=== PATIENT | female | born 1930 | race Caucasian/White ===

== ENCOUNTER 2016-06-24 19:40 | Inpatient (IN) | payer MEDICARE ==
[~2016-06-24] VITALS: Ht 157.5 cm; Wt 52.4 kg
[2016-06-24 20:25] LABS: BASOPHILS 0.2 % (0.0-2.0); EOSINOPHILS 0.7 % (0-7); HEMATOCRIT 40.5 % (36.0-48.0); IMMATURE GRANULOCYTES 0.1 % (0-5); LYMPHOCYTES 26.4 % (15-50); MCH 30.2 pg (26.0-34.0); MCHC 34.6 g/dL (31.0-37.0); MCV 87.3 fL (80.0-100.0); MEAN PLATELET VOLUME 11.6 fL (7.4-10.4); MONOCYTES 7.6 % (2-11); PLATELET COUNT 196 10x3/uL (130-400); RBC 4.64 10x6/uL (4.00-5.40); RDW 13.1 % (11.5-14.5); WBC 8.6 10x3/uL (4.8-10.8)
[2016-06-24 20:39] LABS: ALBUMIN 3.9 g/dL (3.4-5.0); ANION GAP 12.9 mmol/L (8-16); BILIRUBIN - TOTAL 0.55 mg/dL (0.2-1.3); CALCIUM 11.5 mg/dL (8.5-10.1); CARBON DIOXIDE 30.1 mmol/L (21.0-32.0); PROTEIN - SERUM 6.8 g/dL (6.4-8.2)
[2016-06-24 21:20] LABS: UDS - AMPHET NEGATIVE QUAL (NEGATIVE); UDS - BARB NEGATIVE QUAL (NEGATIVE); UDS - BENZO POSITIVE QUAL (NEGATIVE); UDS - COCAINE NEGATIVE QUAL (NEGATIVE); UDS - METH NEGATIVE QUAL (NEGATIVE); UDS - OPIATE POSITIVE QUAL (NEGATIVE); UDS - PCP NEGATIVE QUAL (NEGATIVE); UDS - THC NEGATIVE QUAL (NEGATIVE)
[2016-06-24 21:24] LABS: APPEARANCE HAZY (CLEAR); BILIRUBIN NEGATIVE (NEGATIVE); COLOR YELLOW (YELLOW); GLUCOSE NEGATIVE (NEGATIVE); KETONE NEGATIVE (NEGATIVE); LEUKOCYTE ESTERASE 1+ (NEGATIVE); NITRITE NEGATIVE (NEGATIVE); PROTEIN NEGATIVE (NEGATIVE); UROBILINOGEN NORMAL (NORMAL)
[2016-06-24 21:25] LABS: WHITE CELLS - URINE >50 /hpf (0-5)
[2016-06-24 21:27] LABS: BACTERIA MODERATE /hpf (NONE SEEN); RED CELLS - URINE 0-5 /hpf (0-5)
[2016-06-25 05:33] VITALS: BP 118/39; BMI 18.0
[2016-06-25 06:29] VITALS: BP 118/39
--- NOTE | 2016-06-25 07:24 | NUR ---
PT SITTING UP IN BED SLEEPING NO S/S DISTRESS NOTED WILL CONT TO MONITOR
--- NOTE | 2016-06-25 07:44 | NUR ---
CALLED PHARM TO FINISH PT MED REC, PT ISNT SURE OF HOME MEDS. PHARM NOT OPEN YET.
[2016-06-25] MEDS ORDERED: HYDROCODON-ACE1 EAC7 PO (08:26)
[2016-06-25] MEDS ORDERED: XANAX0.25 MG PO (08:27)
[2016-06-25] MEDS ORDERED: MODURETIC 5/501 TAB PO (08:28)
[2016-06-25] MEDS ORDERED: SYNTHROID50 MCG PO (08:28)
[2016-06-25] MEDS ORDERED: METOPROLOL-HCT1 EACH PO (08:30)
[2016-06-25 08:32] VITALS: BP 152/58
--- NOTE | 2016-06-25 11:17 | NUR ---
PT SITTING UP IN BED DENIES NEEDS AT THIS TIME WILL CONT TO MONITOR.
[2016-06-25 11:54] VITALS: Ht 157.5 cm; Wt 52.4 kg
[2016-06-25 12:43] VITALS: BP 153/82
--- NOTE | 2016-06-25 13:03 | NUR ---
FAXED CONSULT TO [phone]
--- NOTE | 2016-06-25 16:10 | NUR ---
PT ON TELE RUNNING SR 66 BPM
[2016-06-25 16:18] VITALS: BP 148/74
--- NOTE | 2016-06-25 16:33 | NUR ---
PT IS VERY UPSET THAT HER GRANDDAUGHTER IS LISTED CONTACT NUMBER. WANTS TAKEN OFF AND HER SON AMINTA CARO, KRISTI COLUNGA NEPHEW, AND CAREGIVER SANTA IRENE PUT ON HER CONTACT LIST. CALLED ER ADMISSIONS AND THEY ARE TAKING GRANDDAUGHTER OFF CHART AND PUTTING THESE CONTACTS ON. PER PT REQUEST PLACING SIGN ON DOOR THAT SAYS TO SEE NURSING STATION BEFORE ENTERING ROOM.
--- NOTE | 2016-06-25 18:32 | NUR ---
PT SITTING UP ON SIDE OF BED TALKING TO VISITORS DENIES NEEDS WILL CONT TO MONITOR.
--- NOTE | 2016-06-25 19:03 | NUR ---
SITTING UP IN BED, AWAKE AND ALERT, CONFUSED TO PLACE AND TIME, IV PATENT TO RIGHT BREAST, DENIES NEEDS, NO DISTRESS NOTED
[2016-06-25 20:15] VITALS: BP 164/65
[2016-06-26 00:34] VITALS: BP 152/55
--- NOTE | 2016-06-26 00:55 | NUR ---
CLAIMS SUPPORT SPECIALIST AT BEDSIDE FOR VS, NEEDS ADDRESSED. CALL LIGHT IN REACH. WILL CONT TO MONITOR.
[2016-06-26 04:26] VITALS: BP 150/58
[2016-06-26 05:16] LABS: BASOPHILS 0.2 % (0.0-2.0); HEMOGLOBIN 14.1 g/dL (12-16); IMMATURE GRANULOCYTES 0.1 % (0-5); LYMPHOCYTES 24.4 % (15-50); MCH 30.5 pg (26.0-34.0); MCHC 34.4 g/dL (31.0-37.0); MCV 88.7 fL (80.0-100.0); MEAN PLATELET VOLUME 12.6 fL (7.4-10.4); MONOCYTES 6.9 % (2-11); NEUTROPHILS 67.4 % (40-80); PLATELET COUNT 165 10x3/uL (130-400); RBC 4.62 10x6/uL (4.00-5.40); RDW 13.2 % (11.5-14.5); WBC 8.1 10x3/uL (4.8-10.8)
[2016-06-26 05:30] LABS: CALCIUM 10.4 mg/dL (8.5-10.1); CARBON DIOXIDE 27.4 mmol/L (21.0-32.0); CHLORIDE - SERUM 99 mmol/L (98-107); GLUCOSE 129 mg/dL (74-106); PHOSPHOROUS 2.6 mg/dL (2.5-4.9); SODIUM 135 mmol/L (136-145)
[2016-06-26 05:37] LABS: CALC OSMOLALITY 272 mosm/kg (275-300); CREATININE - SERUM 0.7 mg/dL (0.6-1.3); UREA NITROGEN 15 mg/dL (7-18); eGFR NON AFRICAN AMERICAN 84 mL/min (90-120)
[2016-06-26 05:38] LABS: POTASSIUM - SERUM 3.5 mmol/L (3.5-5.1)
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
[2016-06-26 08:33] VITALS: BP 150/63
--- NOTE | 2016-06-26 11:09 | NUR ---
PT UP AND WALKING IN THE HALLS TODAY.
[2016-06-26 12:26] VITALS: BP 150/72
--- NOTE | 2016-06-26 13:01 | NUR ---
PT KEEPS WANDERING AROUND THE FLOOR LOOKING FOR A "SILVER CANDLESTICK" WILL NOT TELL US WHAT FOR. KEEPS TALKING ABOUT "BRANDEE" AND THAT HE IS "OUTSIDE HER WINDOW TELLING HER HE IS "COMING FOR HER".
[2016-06-26 15:46] VITALS: BP 127/51
--- NOTE | 2016-06-26 17:54 | NUR ---
PT SITTING UP IN BED DENIES NEEDS HELPED PT TO THE BATHROOM TO VOID.
--- NOTE | 2016-06-26 19:36 | NUR ---
RECIEVED PTS P.O.A PAPERS FROM CARE GIVEN SANTA, COPIES MADE AND PLACED ON CHART, ORIGINAL COPY GIVEN BACK TO ROOM SERVICE FOOD SERVICE ATTENDANT.
[2016-06-26 20:00] VITALS: BP 107/44
--- NOTE | 2016-06-26 23:02 | NUR ---
COUNTER SALES REPRESENTATIVE AT BEDSIDE FOR VS. NEEDS ADDRESSED, CALL LIGHT IN REACH. WILL CONT TO MONITOR.
--- NOTE | 2016-06-27 00:51 | NUR ---
RESTING WITH EYES CLOSED, RESPERATIONS EVEN, NO S/S DISTRESS NOTED.
--- NOTE | 2016-06-27 02:27 | NUR ---
REPOSITIONED IN BED FOR COMFORT.
[2016-06-27 05:35] LABS: BASOPHILS 0.2 % (0.0-2.0); EOSINOPHILS 2.4 % (0-7); HEMATOCRIT 36.5 % (36.0-48.0); HEMOGLOBIN 12.3 g/dL (12-16); IMMATURE GRANULOCYTES 0.2 % (0-5); LYMPHOCYTES 32.8 % (15-50); MCH 29.9 pg (26.0-34.0); MCHC 33.7 g/dL (31.0-37.0); MCV 88.8 fL (80.0-100.0); MEAN PLATELET VOLUME 11.8 fL (7.4-10.4); MONOCYTES 8.2 % (2-11); NEUTROPHILS 56.2 % (40-80); PLATELET COUNT 143 10x3/uL (130-400); RBC 4.11 10x6/uL (4.00-5.40); RDW 13.3 % (11.5-14.5); WBC 6.6 10x3/uL (4.8-10.8)
[2016-06-27 06:03] LABS: CALC OSMOLALITY 271 mosm/kg (275-300); CALCIUM 10.1 mg/dL (8.5-10.1); CARBON DIOXIDE 27.7 mmol/L (21.0-32.0); CHLORIDE - SERUM 102 mmol/L (98-107); CREATININE - SERUM 0.6 mg/dL (0.6-1.3); GLUCOSE 93 mg/dL (74-106); PHOSPHOROUS 2.6 mg/dL (2.5-4.9); POTASSIUM - SERUM 3.6 mmol/L (3.5-5.1); SODIUM 136 mmol/L (136-145); UREA NITROGEN 13 mg/dL (7-18); eGFR NON AFRICAN AMERICAN > 90 mL/min (90-120)
[2016-06-27 06:07] LABS: MAGNESIUM - SERUM 1.3 mg/dL (1.8-2.4)
[2016-06-27 08:25] VITALS: BP 137/60
--- NOTE | 2016-06-27 09:56 | NUR ---
Patient Name: ADILENE CARO Admission Status: ER Accout number: [id number] Admission Date: 06-24-2016 : 1930 Admission Diagnosis: CVA, A Fib Attending: AMY Current LOS: 1 Anticipated DC Date: 06-26-2016 Planned Disposition: Home Primary Insurance: WELLCARE MEDICARE ADV LATE ENTRY FROM 06-25-16, 1846 HOURS Discharge Planning Comments: Cm met with patient to complete initial discharge planning assessment. Patient gave consent to complete assessment. Patient reports she lives at home alone with no steps to enter the home. She mostly independent except for driving. Her sister does all the driving as the patient has macular degeneration. She does not use DME nor community resources. Patient plans to return to home alone and does not feel she will have any dc needs. CM will continue to follow and assist with dc plan/needs. Wrapper Caser: Hermelinda Pierce RN, [facility] [phone]
--- NOTE | 2016-06-27 11:14 | NUR ---
RESUMED CARE OF PT AT THIS TIME REPORT RECIVED FROM DANIELLE NDIAYE
[2016-06-27 11:37] VITALS: BP 114/65
--- NOTE | 2016-06-27 12:13 | NUR ---
PT LAYING IN BED NO DISTRESS OBSERVED CALL LIGHT INR EACH SRX2 BED LOW AND LOCKED WILL MONITOR
[2016-06-27 15:59] VITALS: BP 113/47
--- NOTE | 2016-06-27 17:05 | NUR ---
Patient Name: ADILENE CARO Encounter No: [id number] : 1930 Primary Insurance: WELLC[employer] MEDICARE ADV Anticipated DC Date: 06-28-2016 Planned Disposition: LONG TERM FACILITY External Planned Provider: [facility], MEDICARE REHAB BED DCP follow-up note: CM RECEIVED ORDER REPORTING PT'S FAMILY WANTING PLACEMENT. CM MET WITH PT IN ROOM, PT ORIENTED TO SELF ONLY. CM REVIEWED CHART, LOCATED POWER OF GEOSPATIAL IMAGERY INTELLIGENCE ANALYST DOCUMENT AND NOTICE FROM AMINTA CARO THAT HE IS OUT OF THE COUNTRY AND WOULD LIKE SECONDARY POA, KRISTI JEPURVI, , TO ACT DURING HIS ABSENCE AND IT WAS OK TO SHARE INFORMATION WITH [facility] RN AT [phone]. CM CALLED KRISTI COLUNGA, . KRISTI REPORTS PT'S SON AND DAUGHTER IN LAW ARE IN [facility] AND PT'S GRANDDAUGHTER IS NOT HOME ALL THE TIME TO TAKE CARE OF PT. THEY ARE WANTING PT PLACED IN REHAB UNTIL PT IS ABLE TO GO HOME OR UNTIL OTHER ARRANGEMENTS CAN BE MADE. RUSSEL REVIEWED PLACEMENT OPTIONS FOR LONG TERM REHAB. KRISTI REPORTED PT WAS AT [facility] LAST YEAR AND DID NOT HAVE A GOOD EXPERIENCE. THEY WOULD LIKE REFERRAL SENT TO [facility]. RUSSEL COMPILED REFERRAL AND FAXED TO LINETTE, CLINICAL LIAISON FOR [facility], . CM TO COMPLETE NIGEL SCREENING, OBTAIN FAMILY SIGNATURES AND FAX TO [employer] AT [phone]. CM WAITING ADMISSION DETERMINATION FROM [facility]. Lloyd Smiley, CASE MANAGEMENT
--- NOTE | 2016-06-27 19:33 | NUR ---
RECEIVED IN BEDROOM. STTING IN BED WITH UMBRELLA TIPPER MACHINE AT BEDSIDE. VERY CONFUSED. ALERT AND ORIENTED TO SELF ONLY. CONTACT ISOLATION FOR KLEBSIELLA IN URINE. REINFORCE FALLS SAFETY. CALL LIGHT IN REACH
[2016-06-27 20:00] VITALS: BP 130/58
--- NOTE | 2016-06-27 22:45 | NUR ---
RESTING IN BED WITH EYES CLOSED. NO SIGNS OF DISTRESS. CALL LIGHT IN REACH. BED ALARM ON
[2016-06-28] VITALS: BP 119/68
--- NOTE | 2016-06-28 02:51 | NUR ---
VERY CONFUSED. DELUSIONAL. CALL [employer] STATING SHE HAD A BOMB IN HER ROOM. HALDOL 1 MG PO GIVEN.
[2016-06-28 04:00] VITALS: BP 110/66
[2016-06-28 06:00] LABS: BASOPHILS 0.1 % (0.0-2.0); EOSINOPHILS 1.6 % (0-7); HEMATOCRIT 37.2 % (36.0-48.0); HEMOGLOBIN 12.7 g/dL (12-16); IMMATURE GRANULOCYTES 0.1 % (0-5); LYMPHOCYTES 19.4 % (15-50); MCHC 34.1 g/dL (31.0-37.0); MCV 87.9 fL (80.0-100.0); MEAN PLATELET VOLUME 11.8 fL (7.4-10.4); NEUTROPHILS 69.8 % (40-80); PLATELET COUNT 148 10x3/uL (130-400); RBC 4.23 10x6/uL (4.00-5.40); RDW 12.9 % (11.5-14.5); WBC 6.9 10x3/uL (4.8-10.8)
[2016-06-28 06:16] LABS: CALC OSMOLALITY 265 mosm/kg (275-300); CARBON DIOXIDE 27.8 mmol/L (21.0-32.0); CHLORIDE - SERUM 100 mmol/L (98-107); CREATININE - SERUM 0.7 mg/dL (0.6-1.3); GLUCOSE 89 mg/dL (74-106); POTASSIUM - SERUM 3.4 mmol/L (3.5-5.1); SODIUM 134 mmol/L (136-145); eGFR NON AFRICAN AMERICAN 84 mL/min (90-120)
[2016-06-28 06:17] LABS: UREA NITROGEN 9 mg/dL (7-18)
--- NOTE | 2016-06-28 07:00 | NUR ---
RECEIVED REPORT. AWAKE. ORIENTED X 4 BUT STATES SHE HAS A BOMB THAT SHE IS LAYING ON AND HAS BEEN LAYING ON FOR 2 DAYS. PATIENT STATES THAT SHE IS ANXIOUS AND REQUESTING ANTIANXIETY MEDICATION. CALL LIGHT WITHIN REACH. NO DISTRESS. RESP EVEN AND UNLABORED. BED ALARM PATENT.
[2016-06-28 08:08] VITALS: BP 181/57
--- NOTE | 2016-06-28 08:59 | NUR ---
PATIENT ACCEPTED 3/4 OF K+ ADMINISTERED IN APPLE JUICE AND THEN STATED MARISOL BRANDEE IS SINGING TO HER AND TELLING HER NOT TO TAKE IT BECAUSE THE BOMB IS IN THE POTASSIUM. TRIED TO REASSURE PATIENT THE POTASSIUM WAS SAFE AND PATIENT WOULD NOT BELIEVE THIS BLENDER. ASSISTED PATIENT TO RESTROOM, PATIENT HAS LOOSE STOOLS. 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 PATIENT TRIED TO SIT ON TRASH CAN AND HAVE BOWEL MOVEMENT. STATED SHE DID NOT KNOW SHE COULD NOT DO THAT. ASSISTED PATIENT WITH INCONTINENT CARE AND ASSISTED PATIENT BACK TO BED AT THIS TIME. NO DISTRESS. CALL LIGHT WITHIN REACH. BED ALARM PATENT.
--- NOTE | 2016-06-28 09:28 | NUR ---
STAFF AND STUDENT NURSE REPORTING TO THIS POT ROOM SUPERVISOR THAT PATIENT IS SEEING SOMEONE SITTING IN THE CORNER OF HER ROOM AND THAT SHE IS TRYING TO GET OOB AND LEAVE. PATIENT IS HAVING HALLUCINATIONS. PATIENT CONTINUES TO BE ORIENTED X 4 BUT HAVING AUDITORY AND VISUAL DISTURBANCES. REPORT TO AIX ADMINISTRATOR GIVEN AT THIS TIME.
--- NOTE | 2016-06-28 11:27 | NUR ---
EMAR IS NOT WORKING CORRECTLY AT THIS TIME. WHEN TRYING TO DOCUMENT MEDICATIONS ADMINISTERED, EMAR IS SHUTTING DOWN. IT DEPT IS AWARE AND TRYING TO CORRECT THE PROBLEM.
[2016-06-28 11:41] VITALS: BP 146/64
--- NOTE | 2016-06-28 11:44 | NUR ---
ATTEMPTING TO ADMINISTER [email or web address] TO PATIENT AT THIS TIME. EMAR IS NOT WORKING CORRECTLY. PATIENT IS HOLDING THE BLANKET IN EACH HAND, BLANKET HELD UP IN FRONT OF HER FACE. BLANKET MOVED IN ORDER TO ASSESS PATIENT. PATIENT RESP EVEN AND UNLABORED. PATIENT REFUSING TO SPEAK TO THIS OPEN HEARTH HELPER AT THIS TIME. PATIENT CONTINUES TO DISPLAY PSYCHOTIC BEHAVIOR AT THIS TIME. ENCOURAGED PATIENT TO PLEASE OPEN HER EYES AND PATIENT BARELY SQUINTED EYES OPEN AND QUICKLY CLOSED THEM AGAIN. WILL REQUEST ANTIDER PSYCH CONSULT TO BE ORDERED FROM ATTENDING PCP. UNABLE TO ADMINISTER FLORAJEN3 AT THIS TIME. NO DISTRESS. CALL LIGHT WITHIN REACH.
--- NOTE | 2016-06-28 13:56 | NUR ---
ASSISTED PATIENT BACK TO BED. PATIENT CONTINUES TO HAVE VISUAL HALLUCINATIONS. PATIENT STATES THAT THERE IS A TICKING BOMB IN THE CABINET BELOW AIR CONDITIONER. ATTEMPTED TO SHOW PATIENT THAT THERE IS NO DRAWER BELOW THE AIR CONDITIONER. PATIENT STATES THAT IT MUST BE IN THE BEDROOM WHILE POINTING TOWARD THE BATHROOM. UPON LEAVING THE ROOM, PATIENT STATES PLEASE DO NOT LEAVE, THIS FRANCHISE CONSULTANT TOLD PATIENT THAT I WOULD BE RIGHT OUTSIDE THE DOOR AND PATEINT STATED THAT SHE WAS NOT TALKING TO ME AND CONTINUED TO HAVE A CONVERSATION WITH SOMEONE SHE THOUGHT TO BE PRESENT IN ROOM. PATIENT ALSO TRYING TO CALL THE POLICE AGAIN TO REPORT A BOMB. TELEPHONE PLACED ON BEDSIDE STAND NEXT TO BED. NO DISTRESS. PATIENT SITTING IN BED CONSUMING SMALL BITES OF NOON MEAL AT THIS TIME.
--- NOTE | 2016-06-28 14:08 | NUR ---
PATIENT SITTING UP IN BED, BED IN LOW POSITION. BED ALARM PATENT. NO DISTRESS.
[2016-06-28 15:14] VITALS: BP 147/83
--- NOTE | 2016-06-28 17:12 | NUR ---
Patient Name: ADILENE CARO Encounter No: [id number] : 1930 Primary Insurance: WELLCARE MEDICARE ADV Anticipated DC Date: 06-29-2016 Planned Disposition: INTERMEDIATE FACILITY External Planned Provider: [facility], MEDICARE REHAB BED DCP follow-up note: KRISTI COLUNGA, NEPHGABE AND CRISPIN ARRIVED AND REVIEWED [facility] AND SIGNED THE SCREENING FORMS. CM FAXED COMPLETED NIGEL AND SUPPORTING DOCUMETNS TO [facility] FOR SCREENING AT . CM SPOKE TO LINETTE, CLINICAL LIAISON FOR [facility], WHO MET WITH PT AND WILL SPEAK TO STAFF AT [facility] AND NOTIFY CM OF ADMISSION DETERMINATION SOON POSSIBLE. CM FAXED MICROBIOLOGY REPORT FOR ISOLATION TO [facility] VIA LIN[facility]TE AT [phone]. CM WAITING NIGEL SCREENING RESULT AND ADMISSION DETERMINATION FROM [facility]. Lloyd Smiley, CASE MANAGEMENT
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
--- NOTE | 2016-06-28 18:20 | NUR ---
DON REPORTS TO THIS CALENDERING MACHINE OPERATOR WHILE IN ANOTHER PATIENT ROOM THAT PATIENT HAS RIPPED HER IV OUT. NO BLEEDING FROM SITE. PATIENT CONTINUES TO HAVE VISUAL AND AUDITORY HALLUCINATIONS. UNABLE TO REASON WITH PATIENT. ATIVAN HAS NOT YET BEEN EFFECTIVE. PATIENT UP IN ROOM AMBULATING AROUND ROOM. NO DISTRESS.
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
[2016-06-28 20:00] VITALS: BP 157/70
[2016-06-29] VITALS: BP 142/68
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
--- NOTE | 2016-06-29 02:25 | NUR ---
PT WOKE UP STILL VERY CONFUSED AND HALLUCINATING. PT ASKED ME ABOUT ALL THE PEOPLE BEING KILLED THEN ASKED IF SHE WAS TAKING UP THE CHILDRENS BEDS. ORIENTED PT TO BEING IN THE HOSPITAL AND EXPLAINED TO HER THAT MAYBE SHE WAS JUST HAVING A BAD DREAM BUT STATED "YOU'RE RIGHT I GUESS IT WAS A BAD DREAM" PT IS GOING TO TRY AND GO BACK TO BED NOW. CL IN REACH, BED IN LOWEST, SIDE RAILS X2 AND BUILT IN BED ALARM ON. WILL CPOC.
--- NOTE | 2016-06-29 03:04 | NUR ---
PT CALLED AND STATED SHE WAS INCONTINENT OF URINE. DON MERIDA CHANGED PT AND PROVIDED HER WITH FRESH CLEAN/DRY GOWN. PT REQUESTED HER ANTI-ANXIETY MEDICATION AND WAS PROVIDED WITH IT AND ORANGE JUICE. PT ALSO REQUESTED AND WAS PROVIDED WITH LIP VASOLINE. PT VOICED THANKS AND DENIES ANY FURTHER NEEDS AT THIS TIME. WILL CTM.
[2016-06-29 04:00] VITALS: BP 138/70
[2016-06-29 05:37] LABS: BASOPHILS 0.2 % (0.0-2.0); EOSINOPHILS 0.8 % (0-7); HEMATOCRIT 36.1 % (36.0-48.0); HEMOGLOBIN 12.2 g/dL (12-16); IMMATURE GRANULOCYTES 0.2 % (0-5); LYMPHOCYTES 22.6 % (15-50); MCHC 33.8 g/dL (31.0-37.0); MCV 88.9 fL (80.0-100.0); MEAN PLATELET VOLUME 11.7 fL (7.4-10.4); MONOCYTES 11.4 % (2-11); NEUTROPHILS 64.8 % (40-80); PLATELET COUNT 157 10x3/uL (130-400); RBC 4.06 10x6/uL (4.00-5.40); RDW 13.2 % (11.5-14.5); WBC 6.1 10x3/uL (4.8-10.8)
[2016-06-29 05:48] LABS: CALC OSMOLALITY 275 mosm/kg (275-300); CALCIUM 10.8 mg/dL (8.5-10.1); CARBON DIOXIDE 30.1 mmol/L (21.0-32.0); CHLORIDE - SERUM 102 mmol/L (98-107); CREATININE - SERUM 0.7 mg/dL (0.6-1.3); GLUCOSE 98 mg/dL (74-106); POTASSIUM - SERUM 3.6 mmol/L (3.5-5.1); SODIUM 138 mmol/L (136-145); eGFR NON AFRICAN AMERICAN 84 mL/min (90-120)
[2016-06-29 05:49] LABS: UREA NITROGEN 12 mg/dL (7-18)
[2016-06-29 08:32] VITALS: BP 136/70
--- NOTE | 2016-06-29 09:16 | NUR ---
PT ASSESSMENT COMPLETED PT LAYING IN BED HALLUSINATING VISUAL AM MEDS ADMIN AND PO TOLERATED WITH NO DISTRESS OBSERVED PT NOW LAYING IN BED EYES CLOSED AND APPERS TO BE SLEEPING CALL LIGHT IN REACH SRX2 BED LOW AND LOCKED WILL MONITOR
--- NOTE | 2016-06-29 11:27 | NUR ---
PT LAYING IN BED NO DISTRESS OBSERVED CALL LIGHT IN REACH SRX2 BED LOW AND LOCKED WILL MONITOR
--- NOTE | 2016-06-29 11:43 | NUR ---
CM RECEIVED NIGEL NON-PASRR AND NOTIFIED LINETTE CAMDEN AT [facility]. CM FAXED COPY OF NIGEL NON-PASRR TO [employer] AND PLACED COPY IN PT'S CHART. LINETTE INFORMED THAT PT'S INS. CO HAS NOT GIVEN AUTH FOR SNF, BUT THAT SHE WILL NOTIFY CM WHEN AUTH HAS BEEN RECEIVED.
[2016-06-29 13:41] VITALS: BP 166/75
--- NOTE | 2016-06-29 14:10 | NUR ---
Nutrition follow-up: Diet: Regular PO intake ~25% of meals Labs reviewed wt: 99# - up 1# from admit +BM RDN will order Ensure with meals Following.
--- NOTE | 2016-06-29 15:34 | NUR ---
PT HAVING VISUAL HALLUCIATIONS ABOUT " A 12 YEAR OLD GIRL THAT I NEED TO CHECK ON MY BABY" REORINATED PT BACK TO PRESENT AND PT JUST SHOOK HEAD NO AND LAID BACK IN BED. RESPERATIONS EVEN AND UNLABORED WITH NO DISTRESS CALL LIGHT IN REACH SRX2 BED LOW AND LOCKED WILL MONITOR
[2016-06-29 17:04] VITALS: BP 156/76
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
--- NOTE | 2016-06-29 21:00 | NUR ---
PT ADMINISTERED PAIN MEDICATION FOR BACK PAIN 10/24 AND ATIVAN FOR ANXIETY AT THIS TIME. WCTM. BED LOW. CL IN THE [facility].
[2016-06-29 21:17] VITALS: BP 158/57
--- NOTE | 2016-06-29 22:44 | NUR ---
PT SITTING UP IN BEDSIDE CHAIR. PT DENIES NEEDS. CL IN REACH.
[2016-06-30 01:21] VITALS: BP 145/60
--- NOTE | 2016-06-30 02:38 | NUR ---
PT RESTING, EYES CLOSED. RR ARE EVEN AND UNLABORED. WCTM. BED LOW. CL IN REACH.
[2016-06-30 04:00] VITALS: BP 141/69
[2016-06-30 06:07] LABS: BASOPHILS 0.3 % (0.0-2.0); EOSINOPHILS 0.2 % (0-7); HEMATOCRIT 35.9 % (36.0-48.0); HEMOGLOBIN 12.2 g/dL (12-16); IMMATURE GRANULOCYTES 0.3 % (0-5); LYMPHOCYTES 20.8 % (15-50); MCV 88.2 fL (80.0-100.0); MEAN PLATELET VOLUME 11.8 fL (7.4-10.4); MONOCYTES 13.2 % (2-11); NEUTROPHILS 65.2 % (40-80); PLATELET COUNT 157 10x3/uL (130-400); RBC 4.07 10x6/uL (4.00-5.40); RDW 13.2 % (11.5-14.5); WBC 6.5 10x3/uL (4.8-10.8)
--- NOTE | 2016-06-30 06:17 | NUR ---
PT AM MEDS ADMINISTERED. PT RESTING IN BED AND DENIES NEEDS. BED LOW. CL IN REACH.
[2016-06-30 06:20] LABS: CALCIUM 10.3 mg/dL (8.5-10.1); CARBON DIOXIDE 29.5 mmol/L (21.0-32.0); CHLORIDE - SERUM 99 mmol/L (98-107); CREATININE - SERUM 0.7 mg/dL (0.6-1.3); GLUCOSE 98 mg/dL (74-106); SODIUM 134 mmol/L (136-145); eGFR NON AFRICAN AMERICAN 84 mL/min (90-120)
[2016-06-30 06:24] LABS: CALC OSMOLALITY 268 mosm/kg (275-300); UREA NITROGEN 16 mg/dL (7-18)
[2016-06-30 07:05] LABS: MAGNESIUM - SERUM 1.2 mg/dL (1.8-2.4); PHOSPHOROUS 2.8 mg/dL (2.5-4.9)
--- NOTE | 2016-06-30 07:16 | NUR ---
PT SLEEPING NO S/S DISTRESS NOTED EVEN RR. WILL CONT TO MONITOR.
[2016-06-30 08:45] VITALS: BP 112/64
--- NOTE | 2016-06-30 11:58 | NUR ---
CALLED TO PT ROOM. PT SAYS SHE HAS URINATED AND HAD BM IN THE BED. (PT NORMALLY SELF ASSIST PT AND LETS STAFF KNOW WHEN SHE NEEDS TO GO TO THE BATHROOM.) GOT PT UP TO CLEAN HER UP. LOOSE STOOL CONTINUALLY COMING OUT. GOT PT TO SHOWER. COMPLETE SHOWER GIVEN, WASHED PT HAIR ETC. CLEANED UP PT ROOM AND PT. COMPLETE LINEN CHANGE GIVEN. TALKED TO JOCY JACOBSEN ABOUT SITUATION. JOCY ORDERED LOMOTIL PRN. GIVEN TO PT. PT SITTING UP IN BED EATING HER LUNCH. DENIES OTHER NEEDS OTHER THAN ATIVAN, GIVEN. WILL CONT TO MONITOR
--- NOTE | 2016-06-30 12:21 | NUR ---
PT SAYING THERE IS A BIRD IN HER ROOM AND HAS BEEN THERE ALL DAY. NO BIRD IN ROOM, REORIENTED PT. PT ALSO COMPLAINS OF "LICE IN HER HAIR" I PERSONALLY WASHED PT HAIR AND NO LICE, TOLD PT THIS.
[2016-06-30 12:38] VITALS: BP 150/66
[2016-06-30 16:07] VITALS: BP 136/59
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
[2016-06-30 20:00] VITALS: BP 147/61
[2016-07-01] VITALS: BP 132/66
[2016-07-01 04:00] VITALS: BP 132/58
[2016-07-01 05:55] LABS: MAGNESIUM - SERUM 1.2 mg/dL (1.8-2.4); PHOSPHOROUS 2.5 mg/dL (2.5-4.9)
[2016-07-01 05:56] LABS: POTASSIUM - SERUM 3.2 mmol/L (3.5-5.1)
--- NOTE | 2016-07-01 06:40 | NUR ---
MAG AND POTASSIUM REPLACED PER ELECTROLYTE REPLACEMENT PROTOCOL. POTASSIUM POST DOSE LAB ORDERED. PT RESTING QUIETLY AND SWALLOWED MEDICATIONS WITHOUT ANY DIFFICULTIES NO FURTHER NEEDS AT THIS TIME. WILL CPOC.
--- NOTE | 2016-07-01 07:21 | NUR ---
PT SITTING UP IN BED SLEEPING NO S/S DISTRESS NOTED WILL CONT TO MONITOR
--- NOTE | 2016-07-01 08:29 | NUR ---
PT CALLING 911 AGAIN. PT HALLUCINATING MEN IN HER ROOM AND BIRDS ON THE CEILING. PT ASKING FOR ATIVAN TO "CALM HER NERVES" GIVEN.
[2016-07-01 08:56] VITALS: BP 119/68
--- NOTE | 2016-07-01 10:22 | NUR ---
Nutrition follow-up: Diet: Regular PO intake 25-50% of meals Pt confused most of the time per nursing Labs reviewed +BM No new wt to assess RDN following.
--- NOTE | 2016-07-01 12:43 | NUR ---
WAITING ON PHARM TO BRING UP MEDICATIONS ORDERED WILL GIVE WHEN AVAILABLE.
--- NOTE | 2016-07-01 12:54 | NUR ---
07/01/2016 12:47 DCP: Discharge Planning Rec'd call from Layla with Marcelino Aguayo - [facility] has denied patient for skilled rehab. Discussed with Dr. Briceno - he requests patient be re evaluated for [facility] placement. Spoke with Nati in Long Term - she will ask Dr. Prescott to re evaluate. CM will follow.
[2016-07-01 17:41] VITALS: BP 120/67
--- NOTE | 2016-07-01 17:48 | NUR ---
PT SITTING UP IN BED DENIES NEEDS
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
[2016-07-02] VITALS: BP 125/64
[2016-07-02 04:00] VITALS: BP 130/72
--- NOTE | 2016-07-02 06:19 | NUR ---
PT STILL BEING NON-COMPLIANT REFUSING MEDICATIONS LAST NIGHT AND THIS AM. PT IS STILL HAVING VISUAL AND AUDITORY HALLUCINATIONS. PT HAS NOT BEEN COMBATIVE BUT IS EXTREMELY SUSPICIOUS OF EVERYTHING WE DO. PT ACTS IMPULSIVE WITH EMOTIONS AND CANT BE ORIENTED. REALLY THINK PTS PSYCH EVAL NEEDS ADDRESSED AGAIN, WE ARENT ABLE TO GIVE HER THE CARE SHE NEEDS. BASELINE MEMORY UNKNOWN, HAVENT BEEN ABLE TO SPEAK TO ANY FAMILY. WILL PASS ON IN REPORT.
--- NOTE | 2016-07-02 08:17 | NUR ---
ASSESSMENT DONE. PT ALERT, AND SLIGHTLY CONFUSED BUT PLEASENT. PT REQUESTS "NERVE PILL." PT'S SON IN ROOM. TOOK MEDS OK. BOX ALARM ATTACHED TO PT. NO DISTRESS NOTED. CALL LIGHT WITH IN REACH. WILL CONT. TO MONITOR.
[2016-07-02 08:40] LABS: BASOPHILS 0.3 % (0.0-2.0); EOSINOPHILS 0.3 % (0-7); HEMATOCRIT 36.6 % (36.0-48.0); HEMOGLOBIN 12.4 g/dL (12-16); IMMATURE GRANULOCYTES 0.1 % (0-5); LYMPHOCYTES 22.8 % (15-50); MCH 29.9 pg (26.0-34.0); MCHC 33.9 g/dL (31.0-37.0); MCV 88.2 fL (80.0-100.0); MEAN PLATELET VOLUME 11.3 fL (7.4-10.4); MONOCYTES 10.1 % (2-11); NEUTROPHILS 66.4 % (40-80); PLATELET COUNT 131 10x3/uL (130-400); RBC 4.15 10x6/uL (4.00-5.40); RDW 13.1 % (11.5-14.5); WBC 6.8 10x3/uL (4.8-10.8)
[2016-07-02 09:04] VITALS: BP 157/70
[2016-07-02 09:56] LABS: CALC OSMOLALITY 274 mosm/kg (275-300); CALCIUM 10.3 mg/dL (8.5-10.1); CARBON DIOXIDE 30.4 mmol/L (21.0-32.0); CHLORIDE - SERUM 100 mmol/L (98-107); CREATININE - SERUM 0.6 mg/dL (0.6-1.3); GLUCOSE 104 mg/dL (74-106); PHOSPHOROUS 2.6 mg/dL (2.5-4.9); SODIUM 137 mmol/L (136-145); UREA NITROGEN 14 mg/dL (7-18); eGFR NON AFRICAN AMERICAN > 90 mL/min (90-120)
[2016-07-02 09:59] LABS: MAGNESIUM - SERUM 1.7 mg/dL (1.8-2.4)
[2016-07-02 10:01] LABS: POTASSIUM - SERUM 2.7 mmol/L (3.5-5.1)
--- NOTE | 2016-07-02 10:12 | NUR ---
CRITICAL POTASSIUM CALLED AT 2.7. EP INITIATED. 1ST DOSE OF 20MEG LIQUID PO GIVEN MIXED IN ORANGE JUICE. PT DRANK ALL OF IT. WILL CONT. TO FOLLOW PROTOCOL. EXPLAINED TO PT. SHE VERBALIZED UNDERSTANDING, AND IS AGREEMENT. PT IS SB ON TELEMETRY. BOX ALARM ATTACH. PT DENIES OTHER NEEDS AT THIS TIME. WILL CONT. TO MONITOR.
--- NOTE | 2016-07-02 12:10 | NUR ---
PT SITTING UP ON SIDE OF BED EATING LUNCH. A/O X3. 2ND DOSE OF K+ GIVEN IN ORANGE JUICE. PT STATES SHE KNEW I WOULD BE IN THERE TO GIVE IT TO HER BECAUSE I TOLD HER I WOULD BE BACK AT NOON. NO DISTRESS NOTED. BOX ALARM ATTACHED. DENIES OTHER NEEDS AT THIS TIME. CALL LIGHT WITH IN REACH. WILL CONT. TO MONITOR.
[2016-07-02 12:12] VITALS: BP 108/51
--- NOTE | 2016-07-02 13:55 | NUR ---
Russel notified per Adelina OCASIO that patient will require Psychiatric placement. Patient has [employer] insurance and this will require prior authorization. Per eri Aranda, Dr. Prescott suggest outside placement in a geropsyche unit. The following units have been called for placement: [facility]-per Socorro no beds available, [facility]--per Rosamaria only one male bed available. Contacted [facility], [place], spoke with Elizabeth, who states they are full this weekend, but will have beds on Monday and will begin the Insurance authorization process at that time. RUSSEL faxed face sheet, H/P, Labs, current MAR: [facility]. Provided Courtney Bunch's name for contact on Monday. Notified Adelina OCASIO of same. Bernadette Miramontes RN, CM
[2016-07-02 16:25] VITALS: BP 118/56
--- NOTE | 2016-07-02 16:54 | NUR ---
PT SLEEPING. EYES CLOSED, RESP EVEN AND UNLABORED. NO DISTRESS NOTED. BOX ALARM ATTACHED TO PT. CALL LIGHT WITH IN REACH. WILL CONT. TO MONITOR.
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
--- NOTE | 2016-07-02 17:47 | NUR ---
PT ATTEMPTED TO BRUSH TEETH AND INSTEAD OF TOOTH PASTE SHE USED PETROLEUM JELLY. NURSE HAD PT RINSE MOUTH REPEATEDLY WITH MOUTH WASH. NUSRE BRUSHED DENTURES WITH TOOTH PASTE TO REMOVE PETROLEUM JELLY. ASSITED PT BACK TO BED.
--- NOTE | 2016-07-02 18:19 | NUR ---
PT IS ALERT. NO SS OF DISTRESS AT THIS TIME. WILL CONTINUE TO MOTNIOR.
--- NOTE | 2016-07-02 19:23 | NUR ---
PT IS RESTING IN BED WITH EYES OPEN. ALERT TO SELF. CONFUSED TO TIME AND PLACE. PT IS PLEASANT AND COOPERATIVE. DENIES PAIN OR DISCOMFORT AT THIS TIME. CONTACT PRECAUTIONS OBSERVED. TELEMETRY UNIT IS ON AND INTACT. SR'S ARE UP X 2 IN BED. CALL LIGHT AND BEDSIDE TABLE ARE WITHIN EASY REACH.
[2016-07-02 20:19] VITALS: BP 136/60
--- NOTE | 2016-07-02 22:14 | NUR ---
PT IS RESTING IN BED WITH EYES CLOSED. RESPS ARE EVEN AND UNLABORED. NO ACUTE DISTRESS NOTED.
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
[2016-07-03 00:37] VITALS: BP 166/74
--- NOTE | 2016-07-03 03:37 | NUR ---
PT IS RESTING IN BED DRINKING A ENSURE. STATES SHE WISHES HER SON WOULD STOP BY TO VISIT. NO NEEDS VOICED.
[2016-07-03 04:23] VITALS: BP 140/62
[2016-07-03 05:33] LABS: BASOPHILS 0.2 % (0.0-2.0); EOSINOPHILS 0.3 % (0-7); HEMATOCRIT 37.9 % (36.0-48.0); HEMOGLOBIN 12.9 g/dL (12-16); IMMATURE GRANULOCYTES 0.3 % (0-5); LYMPHOCYTES 18.2 % (15-50); MCH 29.9 pg (26.0-34.0); MCV 87.9 fL (80.0-100.0); MEAN PLATELET VOLUME 11.8 fL (7.4-10.4); MONOCYTES 8.9 % (2-11); NEUTROPHILS 72.1 % (40-80); PLATELET COUNT 133 10x3/uL (130-400); RBC 4.31 10x6/uL (4.00-5.40); WBC 6.1 10x3/uL (4.8-10.8)
[2016-07-03 05:42] LABS: ANION GAP 8.2 mmol/L (8-16); CALCIUM 10.2 mg/dL (8.5-10.1); CARBON DIOXIDE 31.4 mmol/L (21.0-32.0)
[2016-07-03 05:57] LABS: CREATININE - SERUM 0.8 mg/dL (0.6-1.3)
[2016-07-03 05:58] LABS: POTASSIUM - SERUM 2.6 mmol/L (3.5-5.1)
[2016-07-03 09:00] VITALS: BP 102/80
[2016-07-03 16:00] VITALS: BP 116/62
--- NOTE | 2016-07-03 17:00 | NUR ---
ALERT AND ORIENTED TO PERSON. SITTING IN WHEELCHAIR AT NURSES STATION READING PAPER. DENIES SOB OR PAIN. PATIENT STATES, "I'M STAYING HERE UNTIL THEY BRING MY SUITE BACK WITH MY BLACK POST BED." ATTEMPT TO REORIENT TO PLACE, TIME, AND SITUATION UNSUCCESSFUL. SINUS TACH 106bpm WITH PACs ON TELEMETRY. CONTINUE PLAN OF CARE AND SAFETY PRECAUTIONS.
--- NOTE | 2016-07-03 19:48 | NUR ---
RECEIVED IN NURSES STATION. SITTING ONE ON ONE WITH STAFF. CONFUSED. TRANCFERED TO BED AND BOX ALARM INSTALLED FOR SAFETY. DENIES PAIN. CALL LIGHT IN REACH
[2016-07-04] VITALS: BP 128/55
--- NOTE | 2016-07-04 01:38 | NUR ---
RESTING IN BED WITH EYES CLOSED. NO SIGNS OF DISTRESS. BOX ALARM ON. NO SIGNS OF DISTRESS. CALL LIGHT IN REACH
[2016-07-04 05:43] LABS: BASOPHILS 0.2 % (0.0-2.0); EOSINOPHILS 0.7 % (0-7); HEMATOCRIT 35.6 % (36.0-48.0); HEMOGLOBIN 11.9 g/dL (12-16); IMMATURE GRANULOCYTES 0.2 % (0-5); LYMPHOCYTES 25.3 % (15-50); MCH 29.4 pg (26.0-34.0); MCHC 33.4 g/dL (31.0-37.0); MCV 87.9 fL (80.0-100.0); MEAN PLATELET VOLUME 11.3 fL (7.4-10.4); MONOCYTES 11.7 % (2-11); NEUTROPHILS 61.9 % (40-80); PLATELET COUNT 141 10x3/uL (130-400); RBC 4.05 10x6/uL (4.00-5.40); RDW 13.3 % (11.5-14.5); WBC 5.6 10x3/uL (4.8-10.8)
[2016-07-04 06:05] LABS: ANION GAP 4.7 mmol/L (8-16); CALCIUM 10.2 mg/dL (8.5-10.1); CARBON DIOXIDE 33.4 mmol/L (21.0-32.0); CREATININE - SERUM 0.8 mg/dL (0.6-1.3)
[2016-07-04 06:07] LABS: POTASSIUM - SERUM 3.1 mmol/L (3.5-5.1)
--- NOTE | 2016-07-04 07:54 | NUR ---
0745-PT IN BED RESTING. STATES NO PAIN. MONITOR SHOWES NORMAL SR, HR AT 73. LEFT FA SALINE LOCK. LEFT LOWER EXTREMITY EDEMA. RESP ARE EVEN.
[2016-07-04 08:00] VITALS: BP 146/62
--- NOTE | 2016-07-04 10:57 | NUR ---
Patient Name: ADILENE CARO Encounter No: [id number] : 1930 Primary Insurance: WELL[employer] MEDICARE ADV Anticipated DC Date: 06-29-2016 Planned Disposition: Inpatient Psych Facility External Planned Provider: [facility] follow-up note: CM REVIEWED CHART, CALLED [facility] AT [phone]. CM SPOKE TO LANDON WHO REPORTS SHE WILL CHECK TO SEE IF THEY ACCEPT WELLC[employer] INSURANCE, CM PROVIDED REFERRAL INFORMATION VIA PHONE. LANDON TO CALL CM BACK SHORTLY TO INFORM CM IF THEY ACCEPT PT'S INSURANCE. CM CALLED [facility], , SPOKE TO KEDAR WHO TOOK REFERRAL INFORMATION VIA PHONE, WILL CHECK ON BED AVAILABILITY AND CALL CM BACK SHORTLY. KEDAR ASKED REFERRAL BE FAXED. CM FAXED REFERRAL TO [phone]. CM WAITING FOR RETURN CALLS FROM [facility] (LANDON) AND [facility] (KEDAR). Lloyd Smiley, CASE MANAGEMENT
[2016-07-04 12:00] VITALS: BP 119/59
[2016-07-04 16:00] VITALS: BP 132/63
--- NOTE | 2016-07-04 19:20 | NUR ---
Received patient awake, lying in bed, confused, oriented to person only. Pleasant, no voiced complaints, but does not know where she is, time or the situation. Respirations easy and regular, on room air. Remains on Contact Isolation. Bed alarm and waist lisandro alarm is on.
[2016-07-04 21:40] VITALS: BP 143/74
--- NOTE | 2016-07-04 21:41 | NUR ---
Took HS Risperdal without prompting. Restless and flustered at this time, trying to work her cell phone. Encouraged to use hospital phone, offered assistance but does not want to make any calls at this time. Does not want SCDs on at this time.
[2016-07-05 02:00] VITALS: BP 142/63
[2016-07-05 04:22] LABS: BASOPHILS 0.1 % (0.0-2.0); EOSINOPHILS 0.8 % (0-7); HEMOGLOBIN 12.8 g/dL (12-16); IMMATURE GRANULOCYTES 0.1 % (0-5); LYMPHOCYTES 19.7 % (15-50); MCH 29.9 pg (26.0-34.0); MCHC 33.7 g/dL (31.0-37.0); MCV 88.8 fL (80.0-100.0); MEAN PLATELET VOLUME 11.8 fL (7.4-10.4); MONOCYTES 8.9 % (2-11); NEUTROPHILS 70.4 % (40-80); PLATELET COUNT 143 10x3/uL (130-400); RBC 4.28 10x6/uL (4.00-5.40); RDW 13.2 % (11.5-14.5)
--- NOTE | 2016-07-05 04:35 | NUR ---
Sleeping for long periods, telemetry remains on, lisandro alarm on, no signs of distress.
[2016-07-05 04:43] LABS: CALCIUM 10.7 mg/dL (8.5-10.1); CARBON DIOXIDE 30.5 mmol/L (21.0-32.0); CREATININE - SERUM 0.8 mg/dL (0.6-1.3)
[2016-07-05 04:49] LABS: WBC 7.2 10x3/uL (4.8-10.8)
[2016-07-05 04:57] LABS: POTASSIUM - SERUM 2.5 mmol/L (3.5-5.1)
--- NOTE | 2016-07-05 07:15 | NUR ---
RESTING QUIETLY EYES CLOSED RESP UNLABORED NAD NOTED
--- NOTE | 2016-07-05 07:27 | NUR ---
LOW POTASSIUM LEVEL THIS MORNING, = 2.5, HAS BEEN GIVEN FIRST TWO DOSES OUT OF THREE OF 20MEQ POTASSIUM SUPPLEMENT. DAY SHIFT NURSE AWARE TO ORDER FOLLOW UP SERUM POTASSIUM 4 HOURS AFTER THIRD DOSE IS GIVEN.
--- NOTE | 2016-07-05 07:55 | NUR ---
0710-AM ROUNDING DONE WITH PATIENT APPEARING TO BE ASLEEP. RESP ARE EVEN AND NON LABORED. LAYING ON RIGHT SIDE. CHEL ALARM IS ON. ON HEART MONITOR SHOWING SR, HR 84. NO IV ACCESS SEEN AT THIS TIME. IN CONTACT ISOLATION. ON EP, SUPPLEMENTS ARE BEING GIVEN FOR K+ 2.5. WILL CONTINIE TO MONITOR.
[2016-07-05 08:19] VITALS: BP 132/60
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
--- NOTE | 2016-07-05 09:55 | NUR ---
Patient Name: ADILENE CARO Encounter No: [id number] : 1930 Primary Insurance: WELL[employer] MEDICARE ADV Anticipated DC Date: 06-29-2016 Planned Disposition: Inpatient Psych Facility External Planned Provider: TO BE DETERMINED LATE ENTRY FROM 07-04-16 AT 1518 HOURS. DCP follow-up note: CM RECEIVED CALL FROM OF [facility], , THEY CANNOT TAKE PT THEY HAVE ONE BED AVAILABLE AND ARE SAVING IT FOR ANY EMERGENCY ROOM PATIENTS THAT MAY NEED IT. CM RECEIVED CALL FROM [facility] ([facility]) WHO REPORTED THAT THEY ARE OUT OF NETWORK FOR WELLCARE INSURANCE. CM CALLED AND SPOKE TO KRISTI COLUNGA, MARCO AND SECONDARY POWER OF THREE KNIFE [employer]; CM DISCUSSED INSURANCE DENIAL FOR REHAB PLACEMENT AND DOCTORS RECOMMENDATION FOR INPATIENT PSYCHIATRIC TREATMENT. KRISTI IN AGREEMENT WITH PLAN AND PLACEMENT. KRISTI REPORTS NOT HAVING A PLAN FOR PT'S DISCHARGE FROM INPATIENT CARE SHE CANNOT GO HOME UNTIL PT'S SON GETS BACK FROM OUT OF COUNTRY ON 08-25-16. KRISTI WILL ATTEMPT TO GET IN TOUCH WITH AMINTA TO FIND OUT WHAT THE PLAN WILL BE. KRISTI ASKED CM TO CONTACT [facility] TO FIND OUT HOW MUCH PRIVATE PAY RATE WOULD BE TO PLACE PT THERE UNTIL LEMOS GETS BACK. CM CALLED [facility], , SPOKE TO CARLOS WHO PROVIDED PRIVATE PAY RATES: $170 PER DAY SEMI PRIVATE / $200 PER DAY PRIVATE ROOM / ANY THERAPY $100 PER DAY PER DISCIPLINE. CM SPOKE TO MARIA DEL CARMEN OF [facility] [place] WHO REPORTS PT'S INSURANCE TO BE OUT OF NETWORK AND WOULD REQUIRE PEER TO PEER. CM OBTAINED SUGGESTIONS FOR [facility] TO CALL. CM CALLED [facility] [place], , WAS REFERRED TO [facility] [place]. CM CALLED [facility] [place], , SPOKE TO SHRUTHI, NURSE LIAISON, WHO REPORTS BED AVAILBLE AND ASKED FOR FAXED REFERRAL. CM FAXED REFERRAL TO [facility] AT [phone]. CM WAITING ADMISSION DETERMINATION FROM [facility] IN [place] FOR INPATIENT PSYCHIATRIC CARE. Lloyd Smiley, CASE MANAGEMENT
--- NOTE | 2016-07-05 10:12 | NUR ---
Patient Name: ADILENE CARO Encounter No: [id number] : 1930 Primary Insurance: [employer] MEDICARE ADV Anticipated DC Date: 06-29-2016 Planned Disposition: Inpatient Psych Facility External Planned Provider: TO BE DETERMINED DCP follow-up note: RUSSEL CALLED [facility] IN [place], , SPOKE TO SHRUTHI, NURSE LIAISON, WHO FORWARDED CALL TO KIMMY VALENZUELA. KIMMY REPORTS BED AVAILBLE TODAY AND BED STATUS CHANGES DAILY. THERE IS CONCERN THAT PT'S POTASSIUM CONTINUES TO DROP AND IS CRITICALLY LOW TODAY; PT WILL NEED TO HAVE A STABLE POTASSIUM LEVEL THAT CAN BE MAINTAINED ON PO POTASSIUM. [facility] IN [place] WILL ACCEPT PT FOR INPATIENT PSYCHIATRIC CARE WHEN PT'S POTASSIUM IS STABLE AND CAN BE MAINTAINED ON PO MEDICATION (PENDING BED AVAILABILITY). CM TO CALL KIMMY VALENZUELA OF [facility] AFTER 0900 AM DAILY AT [phone]. Lloyd Smiley, CASE MANAGEMENT
[2016-07-05 12:05] VITALS: BP 123/55
[2016-07-05 13:15] LABS: MAGNESIUM - SERUM 1.3 mg/dL (1.8-2.4)
[2016-07-05 13:18] LABS: POTASSIUM - SERUM 3.6 mmol/L (3.5-5.1)
--- NOTE | 2016-07-05 15:08 | NUR ---
Nutrition follow-up: Pt remains very confused per nursing Diet: Regular as tolerated Ensure with meals Labs reviewed PO intake ~25% of meals; po intake has actually improved Wt: 119# RDN following
[2016-07-05 16:04] VITALS: BP 122/61
--- NOTE | 2016-07-05 17:52 | NUR ---
PATIENT IS STILL VERY CONFUSED, CHEL ALARM IS ON. WILL CONTINUE TO MONITOR.
--- NOTE | 2016-07-05 19:26 | NUR ---
PATIENT IS VERY CONFUSED STILL, STATING THAT THERE ARE "HOMEMADE BOMBS IN MY BED". I SHOWED HER HER PILLOW AND TRIED TO RE-ORIENT HER. CHEL ALARM IS ON. WILL CONTINUE TO MONITOR.
--- NOTE | 2016-07-05 22:10 | NUR ---
LYING IN BED WITH EYES CLOSED. SHE IS STILL VERY CONFUSED. SHE IS DOZING OFF TO SLEEP. SEE ASSESSMENT FLOW SHEET FOR DETAILS. WILL CONTINUE POC.
[2016-07-06] VITALS: BP 121/52
[2016-07-06 04:00] VITALS: BP 125/60
[2016-07-06 05:38] LABS: BASOPHILS 0.2 % (0.0-2.0); EOSINOPHILS 0.7 % (0-7); IMMATURE GRANULOCYTES 0.2 % (0-5); MCH 29.7 pg (26.0-34.0); MCHC 33.3 g/dL (31.0-37.0); MCV 89.1 fL (80.0-100.0); MEAN PLATELET VOLUME 11.9 fL (7.4-10.4); MONOCYTES 10.8 % (2-11); NEUTROPHILS 61.1 % (40-80); PLATELET COUNT 138 10x3/uL (130-400); RBC 4.04 10x6/uL (4.00-5.40); RDW 13.4 % (11.5-14.5); WBC 6.1 10x3/uL (4.8-10.8)
[2016-07-06 05:51] LABS: CALC OSMOLALITY 276 mosm/kg (275-300); CALCIUM 10.7 mg/dL (8.5-10.1); CARBON DIOXIDE 30.2 mmol/L (21.0-32.0); CHLORIDE - SERUM 99 mmol/L (98-107); CREATININE - SERUM 0.6 mg/dL (0.6-1.3); GLUCOSE 97 mg/dL (74-106); SODIUM 138 mmol/L (136-145); UREA NITROGEN 16 mg/dL (7-18); eGFR NON AFRICAN AMERICAN > 90 mL/min (90-120)
--- NOTE | 2016-07-06 08:14 | NUR ---
PATIENT IN CONTACK ISOLATION, URINE. TEMETRY IN PLACE. ALERT/ORIENT X4. CALL LIGHT WITHIN REACH
[2016-07-06 08:21] VITALS: BP 135/56
--- NOTE | 2016-07-06 12:25 | NUR ---
PATIENT ON ELECTROLITE PROTOCHOL. 40 MEQ GIVEN
[2016-07-06 12:36] VITALS: BP 134/63
--- NOTE | 2016-07-06 14:38 | NUR ---
PATIENT HAD CALL LIGHT ON. HELPED INTO BATHROOM BY THIS NURSE. WALKED WITH WALKER TO BATHROOM. INCONT OF URINE AND INCONT OF BOWEL. WEARING BRIEFS. CONTACT ISOLATION CONTINUED.
[2016-07-06 15:35] VITALS: BP 113/53
--- NOTE | 2016-07-06 15:57 | NUR ---
PATIENT RESTING IN BED. BED ALARM ON
--- NOTE | 2016-07-06 17:35 | NUR ---
DINNER TRAY SET UP FOR THIS PATIENT. FOOD CUT UP FOR PATIENT
--- NOTE | 2016-07-06 17:38 | NUR ---
Patient Name: ADILENE CARO Encounter No: [id number] : 1930 Primary Insurance: WELLCARE MEDICARE ADV Anticipated DC Date: 06-29-2016 Planned Disposition: Inpatient Psych Facility External Planned Provider: ANNEMARIE HARVEY [facility] DCP follow-up note: CM MET WITH [facility], , IN PT'S ROOM. S[facility] REPORTS BEING CAREGIVER FOR PT AND ASSISTS THE FAMILY WITH PT WHEN SHE CAN. UPDATE PROVIDED BY CM, CM EXPRESSED CONCERN THAT FAMILY WILL NEED TO DEVELOP PLAN FOR LONGTERM CARE FOR WHEN PT GETS OUT OF INPATIENT PSYCHIATRIC CARE WHICH WILL ONLY BE FOR A SHORT TIME. CM ADVISED THAT THE ONLY FACILITY AT THIS TIME THAT CM CAN LOCATE THAT MAY ACCEPT PT HAS BEEN [facility] IN [place]. [facility] AGREES WITH NEED FOR PSYCHIATRIC STABALIZATION AND WILL SPEAK TO KRISTI AND EDE TO ENCOURAGE THEM TO DEVELOP A PLAN, HOME CARE OR FACILITY CARE, FOR PT'S CARE AFTER DISCHARGE FROM ACUTE PSYCHIATRIC CARE. [facility] IN [place] WILL ACCEPT PT FOR INPATIENT PSYCHIATRIC CARE WHEN PT'S POTASSIUM IS STABLE AND CAN BE MAINTAINED ON PO MEDICATION (PENDING BED AVAILABILITY). CM TO CALL KIMMY VALENZUELA OF [facility] AFTER 0900 AM TOMORROW AT [phone]. Lloyd Smiley, CASE MANAGEMENT
[2016-07-06 20:00] VITALS: BP 135/66
--- NOTE | 2016-07-06 20:15 | NUR ---
REPORT RECEIVED AND CARE ASSUMED. RESTING IN BED WITH EYES CLOSED IN NO ACUTE DISTRESS NOTED. SEE ASSESSMENT FLOW SHEET FOR DETAILS. WILL CONTINUE TO MONITOR.
[2016-07-07] VITALS: BP 90/50
[2016-07-07 06:28] VITALS: BP 135/62
--- NOTE | 2016-07-07 07:37 | NUR ---
POTASSIUM 40 MEQ ADMINISTERED PER PROTOCOL FOR K+3.2. PATIENT IS PLEASANT. CONFUSED AND THINKS SHE IS HOME. TELEMETRY 71 SR.
[2016-07-07 08:00] VITALS: BP 145/66
--- NOTE | 2016-07-07 09:32 | NUR ---
Patient Name: ADILENE CARO Encounter No: [id number] : 1930 Primary Insurance: WELLCARE MEDICARE ADV Anticipated DC Date: 06-29-2016 Planned Disposition: Inpatient Psych Facility External [facility] DCP follow-up note: CM FAXED UPDATED REFERRAL TO [facility] [place] AT [phone]. CM CALLED KIMMY VALENZUELA OF [facility] [place] AT [phone] WHO WILL REVIEW UPDATED INFORMATION AFTER 1000 AM MEETING AND IF BED IS AVAILABLE, WILL SPEAK TO HER DOCTOR AND CALL CM BACK. CM RECEIVED CALL FROM [facility] WHO REQUESTED UPDATE BE EMAILED TO PT'S SON/DEE ROA AT [id number]. CM EMAILED BRIEF UPDATE WITH NO PATIENT INFORMATION. CM WAITING ADMISSION DETERMINATION FROM [facility] IN [place]. Lloyd Smiley, CASE MANAGEMENT
--- NOTE | 2016-07-07 10:30 | NUR ---
MEDS ADMINISTERED PO PER ORDERS WITHOUT DIFFICULTY. CALM AND COOPERATIVE. CALL LIGHT WITHIN REACH AND BED IN LOW POSITION.
--- NOTE | 2016-07-07 10:47 | NUR ---
Nutrition follow-up: RDN spoke with pt during meal rounds today. Pt was sitting in bed eating breakfast. Pt reports she is happy with breakfast and is eating good. RDN will continue to encourage increased po intake. Following.
[2016-07-07 11:09] LABS: CALCIUM 10.8 mg/dL (8.5-10.1); CARBON DIOXIDE 34.1 mmol/L (21.0-32.0)
[2016-07-07 11:14] LABS: CREATININE - SERUM 0.8 mg/dL (0.6-1.3); POTASSIUM - SERUM 4.1 mmol/L (3.5-5.1)
[2016-07-07 11:46] VITALS: BP 146/68
[2016-07-07] MEDS ORDERED: MAG-OX 400 MG400 MG PO (13:40)
[2016-07-07] MEDS ORDERED: RISPERDAL1 MG PO (13:40)
[2016-07-07] MEDS ORDERED: K-DUR20 MEQ PO (13:40)
[2016-07-07 16:00] VITALS: BP 136/65
--- NOTE | 2016-07-07 16:00 | NUR ---
PATIENT IS DELUSIONAL AND HAD HER TELEPHONE IN HER GLASS CASE AND WAS RELATING SHE LOST HER PHONE AND WHEN PATIENT WAS TOLD WHERE HIS PHONE IS SHE REPLIED "YEAH BUT ITS WET." TOLD NURSE SHE HEARD NOISES OUT IN THE IRENE AND THERE WAS DIAMONDS EVERYWHERE. ALSO BELIEVES HER TELEMETRY HAS A BOMB IN IT. UNABLE TO SEPARATE REALITY FROM FANTASY.
--- NOTE | 2016-07-07 17:04 | NUR ---
Patient Name: DAILENE CARO Encounter No: [id number] : 1930 Primary Insurance: WELLCARE MEDICARE ADV Anticipated DC Date: 07-08-2016 Planned Disposition: Inpatient Psych Facility External Planned Provider: ANNEMARIE HARVEY DCP follow-up note: CM CALLED KIMMY VALENZUELA OF [facility] AT [phone] WHO REVIEWED UPDATED INFORMATION AND SPOKE TO DR. BALL; THE DOCTOR WANTS TO MAKE SURE THAT PT'S POTASSIUM IS STABLE OVERNIGHT AND CAN BE MAINTAINED ON PO MEDICATION. IF STABLE TOMORROW AND IF BED IS AVAILABLE, DR. BALL WOULD LIKE TO ACCEPT PT. KIMMY WILL CALL CM FOR AN UPDATE IN THE MORNING. AMARJIT BANKS NOTIFIED. Lloyd Smiley, CASE MANAGEMENT
[2016-07-07 20:00] VITALS: BP 127/67
--- NOTE | 2016-07-07 20:00 | NUR ---
REPORT RECEIVED AND CARE ASSUMED. LYING IN BED RESTING QUIETLY. CALM AND COOPERATIVE. BED IN LOW POSITION AND CALL LIGHT IN EASY REACH. SHE IS DELUSIONAL IN CONVERSATION, TALKING ABOUT DOGS AND CATS IN HER BED. WILL CONTINUE TO MONITOR.
[2016-07-08 04:00] VITALS: BP 135/72
[2016-07-08 05:13] LABS: CALC OSMOLALITY 276 mosm/kg (275-300); CARBON DIOXIDE 30.4 mmol/L (21.0-32.0); CHLORIDE - SERUM 103 mmol/L (98-107); CREATININE - SERUM 0.6 mg/dL (0.6-1.3); GLUCOSE 100 mg/dL (74-106); POTASSIUM - SERUM 3.5 mmol/L (3.5-5.1); SODIUM 137 mmol/L (136-145); UREA NITROGEN 21 mg/dL (7-18); eGFR NON AFRICAN AMERICAN > 90 mL/min (90-120)
--- NOTE | 2016-07-08 07:51 | NUR ---
0730-IN CONTACT ISOLATION. APPEARS ASLEEP LAYING ON LEFT SIDE. RESP ARE EVEN AND NON LABORED. CHEL ALARM ON. ON HEART MONITOR SHOWING SB, HR 52. ROOM AIR. WILL CONTINUE TO MONITOR.
[2016-07-08 09:30] VITALS: BP 141/71
[2016-07-08 12:00] VITALS: BP 131/66
--- NOTE | 2016-07-08 18:03 | NUR ---
SITTING UP IN BED EATING SUPPER. REQUESTS MORE KLEENEX, GIVEN. CHEL ALARM ON AND IN USE. CALL LIGHT AT SIDE. WILL CONTINUE TO MONITOR.
--- NOTE | 2016-07-08 18:23 | NUR ---
Patient Name: ADILENE CARO Encounter No: [id number] : 1930 Primary Insurance: WELLCARE MEDICARE ADV Anticipated DC Date: 07-08-2016 Planned Disposition: Inpatient Psych Facility External Planned Provider: ANNEMARIE HARVEY OR [facility] DCP follow-up note: AT ABOUT 0830 HOURS, CM FAXED UPDATED REFERRAL TO [facility] AT [phone]. CM CALLED AND LEFT MESSAGE FOR KIMMY VALENZUELA OF [facility] AT [phone] WHO WILL REVIEW UPDATED INFORMATION AND CALL CM IF BED IS AVAILABLE. AFTER LUNCH, CM RECEIVED CALL FROM MARIA DEL CARMEN OF [facility]; MARIA DEL CARMEN INFORMED CM THAT SHE HAS FAXED EVERYTHING TO PT'S INSURANCE COMPANY AND IS WAITING ON INSURANCE AUTHORIZATION. CM WAITING INSURANCE AUTHORIZATION FROM PT'S INSURANCE FOR [facility] AND BED AVAILABILITY AT [facility] IN [place]. Lloyd Smiley, CASE MANAGEMENT
[2016-07-08 21:18] VITALS: BP 123/51
[2016-07-09 00:23] VITALS: BP 127/62
--- NOTE | 2016-07-09 00:49 | NUR ---
ASSESSED AT THE BEGINNING OF THE SHIFT. SHE IS CONFUSED AND WILL TALK ABOUT THINGS SHE FEELS WE SHOULD DO TO HELP THE COMMUNITY DURING THE DEPRESSION OR SOMETHING LIKE THAT. SHE HAS A CHEL STEPHANIE ON HER BED AND IT IS ON BUT SHE HAS NOT BEEN GETTING UP. THERE IS TELEMETRY IN PLACE AND SHE IS WEARING DEPENDS. WE CRUSHED HER MEDS AT BEDTIME AND SHE TOOK ALL OF THEM WITH CHOCOLATE PUDDING AND THEN DRANK WELL. SHE IS A ONE PERSON ASSIST TO THE BATHROOM. NO IV SITE AT THIS TIME. THE BED IS LOW, RAILS UP X'S 2 WITH THE CALL LIGHT AT HAND.
[2016-07-09 04:25] VITALS: BP 141/58
[2016-07-09 07:00] VITALS: BP 177/93
--- NOTE | 2016-07-09 07:34 | NUR ---
0712-IN CONTACT ISOLATION. ON EP, LAB VALUES ARE NOT BACK YET, WILL CONTINUE TO WATCH FOR THEM. ON HEART MONITOR JULIOWARON OROZCO W OCC PAC, HR 98. NO IV ACCESS. CHEL ALARM IN USE, HAS HER GLASSESS ON. WILL CONTINUE TO MONITOR.
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
[2016-07-09 10:31] LABS: MAGNESIUM - SERUM 1.3 mg/dL (1.8-2.4); PHOSPHOROUS 2.7 mg/dL (2.5-4.9)
[2016-07-09 12:00] VITALS: BP 103/57
--- NOTE | 2016-07-09 12:26 | NUR ---
1210 Contacted Mita with [facility] who states [facility] have [facility] and to call back Monday morning. Contacted Zakia with [facility] and she states there is no information from insurance regarding acceptance as yet. Reported this to Adelina OCASIO. Bernadette Miramontes RN CM
--- NOTE | 2016-07-09 12:55 | NUR ---
EP LABS ARE BACK WITH POTASSIUM AND MAG LOW. WILL COVER WITH SUPPLEMENTS. 1256-WENT IN TO GIVE PATIENT HER LIQUID POTASSIUM AND MAG AND SHE REFUSED HER MEDCATIONS. I EXPLAINED TO HER THAT THIS WAS TO HELP HER FEEL BETTER WITH AND SHE STILL REFUSED.
[2016-07-09 16:00] VITALS: BP 118/57
--- NOTE | 2016-07-09 18:09 | NUR ---
PATIENT TO FINALLY TAKE HER ORAL POTASSIUM AND 1 TAB OF MAG. WILL CONTINUE TO TRY AND GET THE REST OF THE MAG DONE ORDERED FOR SUPPLEMENT REPLACEMENT.
--- NOTE | 2016-07-09 19:30 | NUR ---
PT RECEIVED IN BED WATCHING TV. NO CONCERNS OR COMPLAINTS NOTED AT THIS TIME. NO SIGN/SYMPTOMS OF DISTRESS NOTED. CALL LIGHT IN REACH.
[2016-07-09 20:47] VITALS: BP 122/69
[2016-07-10 00:24] VITALS: BP 123/68
[2016-07-10 04:39] VITALS: BP 124/64
[2016-07-10 06:10] LABS: MAGNESIUM - SERUM 1.6 mg/dL (1.8-2.4); PHOSPHOROUS 2.2 mg/dL (2.5-4.9); POTASSIUM - SERUM 3.8 mmol/L (3.5-5.1)
--- NOTE | 2016-07-10 06:46 | NUR ---
PT IN BED WITH EYES CLOSED AND CHEST RISING. EASILY AROUSED TO VERBAL STIMULI. RECEIVED MEDICATIONS PER MAR WITHOUT DIFFICULTY. NO CONCERNS NOTED. CALL LIGHT IN REACH.
--- NOTE | 2016-07-10 07:34 | NUR ---
AM ROUNDING DONE WITH PATIENT APPEARING TO BE ASLEEP, RESP ARE EVEN AND NON LABORED. IN CONTACT ISOLATION. ON ROOM AIR. ON HEART MONITOR SHOWING SR, HR 67. ON CHEL ALARM. ON EP, K+ 3.8, MAG 1.6, AND PHOS 2.2. WILL COVER WITH SUPPLEMENTS IF PATIENT WILL TAKE.
--- NOTE | 2016-07-10 09:40 | NUR ---
ASSSITED BACK TO BED FROM CHAIR. CHEL ALARM ON.
[2016-07-10 13:01] VITALS: BP 129/56
[2016-07-10 16:39] VITALS: BP 132/60
--- NOTE | 2016-07-10 17:46 | NUR ---
UP TO CHAIR FOR SUPPER, BOX ALARM IN USE AT THIS TIME. WILL MONITOR.
--- NOTE | 2016-07-10 19:42 | NUR ---
PATIENT HAS BEEN UP IN CHAIR SINCE SUPPER. ASSISTED BACK TO BED, CHEL ALARM SET.
[2016-07-10 20:00] VITALS: BP 133/69
--- NOTE | 2016-07-11 01:06 | NUR ---
PT IS SLEEPING, CHEL ALARM IS ON, BED IS LOW, SRX2, CALL LIGHT IN REACH, WILL CONTINUE TO MONITOR
[2016-07-11 04:00] VITALS: BP 146/64
[2016-07-11 05:59] LABS: MAGNESIUM - SERUM 1.7 mg/dL (1.8-2.4); POTASSIUM - SERUM 4.2 mmol/L (3.5-5.1)
[2016-07-11 06:07] LABS: PHOSPHOROUS 3.4 mg/dL (2.5-4.9)
[2016-07-11 08:15] VITALS: BP 125/69
--- NOTE | 2016-07-11 09:53 | NUR ---
UP IN CHAIR WITH CALL LIGHT IN REACH. ISOLATION PRECAUTIONS CONT. WILL MONITOR NEEDS.
--- NOTE | 2016-07-11 10:35 | NUR ---
PT RESTING IN BED WITH EYES OPEN CALL LIGHT IN REACH NO PROBLEMS WILL MONITER
--- NOTE | 2016-07-11 12:15 | NUR ---
PT RESTING IN BED WITH EYES OPEN CALL LIGHT IN REACH WILL MONITER
[2016-07-11 12:24] VITALS: BP 118/62
--- NOTE | 2016-07-11 12:39 | NUR ---
Nutrition follow-up: Diet: Regular as tolerated with Ensure TID PO intake still ~25% of meals Labs reviewed +BM Wt: 116# Will continue to provide food choices and honor food preferences. RDN following.
--- NOTE | 2016-07-11 14:54 | NUR ---
Patient Name: ADILENE CARO Encounter No: [id number] : 1930 Primary Insurance: WE[employer] MEDICARE ADV Anticipated DC Date: 07-11-2016 Planned Disposition: Inpatient Psych Facility External Planned Provider: [facility] DCP follow-up note: CM SPOKE TO MARIA DEL CARMEN OF [facility] WHO INFORMED CM THAT SHE HAS RECEIVED AUTHORIZATION FROM INSURANCE FOR PT TO ADMIT TO [facility] AND THEY WILL ACCEPT TODAY. CM NOTIFIED NEPHEW/POA KRISTI KEANU, ; CM EXPLAINED PT WILL BE IN LOCKED PSYCHIATRIC UNIT WITH SET VISITING HOURS. KRISTI IN AGREEMENT WITH DISCHARGE TO [facility] FOR PSYCHIATRIC CARE. CM DISCUSSED IMPORTANT MESSAGE FROM MEDICARE. CM PROVIDED IMPORTANT MESSAGE FROM MEDICARE TO PT WHO WAS NOT ABLE TO SIGN. CM CALLED KIMMY VALENZUELA [facility] AT [phone], NOTIFIED THAT PLACEMENT HAS BEEN LOCATED AND CANCELLED REFERRAL (THERE WAS NO BED AVAILABLE TODAY.) CM [place]ED [facility] [place] , NOTIFIED PIERCE THAT PT WAS NOT ADMITTED TO RETIREMENT FROM THE HOSPITAL AND WAS ADMITTED TO [facility] AT [place]. CM NOTIFIED DEE CARO, SON/PRIMARY POA, OF PSYCHIATRIC UNIT NAME AND CONTACT NUMBER VIA EMAIL ([email or web address]). REPORT TO BE CALLED TO NURSE BUSTILLO OF [facility], [phone]. Lloyd Smiley, CASE MANAGEMENT
[2016-07-11 16:05] VITALS: BP 149/76
--- NOTE | 2016-07-11 17:30 | NUR ---
PT DISCHARGED TO LONG-TERM VIA WHEELCHAIR REPORT CALLED TO KENY NDIAYE PT TOLERATED TRANSFER WELL REA COLBY
== END 2016-07-11 18:20 | disposition short-term general hospital (02) | DRG 690 ==
LOC: D.ER 19:40 → D.M2 23:35
PROVIDERS: Family Medicine; Nurse Practitioner Acute Care; ADMIT Family Medicine Adult Medicine
DX: N39.0 Urinary tract infection, site not specified (principal); F05 Delirium due to known physiological condition; Z68.1 Body mass index [BMI] 19.9 or less, adult; E87.6 Hypokalemia; E03.9 Hypothyroidism, unspecified; I10 Essential (primary) hypertension; E83.52 Hypercalcemia; F41.9 Anxiety disorder, unspecified; F03.90 Unspecified dementia, unspecified severity, without behavioral disturbance, psychotic disturbance, mood disturbance, and anxiety; F32.9 Major depressive disorder, single episode, unspecified; G47.00 Insomnia, unspecified

== ENCOUNTER 2016-07-11 17:50 | Inpatient (IN) | payer MEDICARE ==
[~2016-07-11] VITALS: Ht 157.5 cm; Wt 52.2 kg
[~2016-07-11 17:50] MED LIST: HYDROCODON-ACE1 EAC7 PO; K-DUR20 MEQ PO; MAG-OX 400 MG400 MG PO; METOPROLOL-HCT1 EACH PO; MODURETIC 5/501 TAB PO; RISPERDAL1 MG PO; SYNTHROID50 MCG PO; XANAX0.25 MG PO
--- NOTE | 2016-07-11 17:50 | NUR ---
Received qasim from [facility] via W/C alert and oriented to name, acknowledges that she is in the hospital but then repeatly starts praying and asking for " oh Lord seen my daughter, my son anybody to come get me I pray." she sits during orientation to unit chanting a prayer. Isolation preautions in place and maintained. Verbal consent obtained per appointed nephew Anila Quinones. per her POA who is out of the country.
[2016-07-11 18:00] VITALS: BP 168/98
[2016-07-11 20:23] VITALS: BP 130/71
--- NOTE | 2016-07-11 21:10 | NUR ---
RECEIVED IN BEDROOM. LAYING IN BED WITH ALARM ON. RESTLESS. ATTEMPTS TO STAND WITHOUT ASSIST. ALERT AND ORIENTED X3 BUT DELUSIONAL. STATING SHE NEEDS TO LEAVE HERE TO GO HELP PRESIDENT OBAMA. REDIRECT AND REORIENT NEEDED. REINFORCE FALLS SAFETY. PM MEDS GIVEN ORDERED. RESTING IN BED AT THIS TIME. CONTINUE PLAN OF CARE
[2016-07-11 22:07] VITALS: BP 130/71
--- NOTE | 2016-07-12 04:08 | NUR ---
DISORIENTED. ATTEMPTS TO STAND WITHOUT ASSIST. ORIENTED TO SELF ONLY
[2016-07-12 06:51] LABS: BASOPHILS 0.1 % (0.0-2.0); EOSINOPHILS 0.8 % (0-7); HEMATOCRIT 36.5 % (36.0-48.0); HEMOGLOBIN 12.3 g/dL (12-16); IMMATURE GRANULOCYTES 0.1 % (0-5); LYMPHOCYTES 21.6 % (15-50); MCH 29.9 pg (26.0-34.0); MCHC 33.7 g/dL (31.0-37.0); MCV 88.8 fL (80.0-100.0); MEAN PLATELET VOLUME 11.1 fL (7.4-10.4); MONOCYTES 7.6 % (2-11); NEUTROPHILS 69.8 % (40-80); RBC 4.11 10x6/uL (4.00-5.40); WBC 7.1 10x3/uL (4.8-10.8)
[2016-07-12 06:54] LABS: PLATELET COUNT 190 10x3/uL (130-400)
[2016-07-12 07:22] LABS: ALBUMIN 2.9 g/dL (3.4-5.0); ALKALINE PHOSPHATASE 86 U/L (46-116); ALT (SGPT) 23 U/L (10-68); CALC OSMOLALITY 277 mosm/kg (275-300); CALCIUM 11.4 mg/dL (8.5-10.1); CARBON DIOXIDE 28.8 mmol/L (21.0-32.0); CHLORIDE - SERUM 103 mmol/L (98-107); CHOLESTEROL, TOTAL 136 mg/dL (0-200); CREATININE - SERUM 0.7 mg/dL (0.6-1.3); GLUCOSE 103 mg/dL (74-106); HDL CHOLESTEROL 45 mg/dL (32-96); LDL CHOLESTEROL 72 mg/dL (0-100); LDL-HDL RATIO 1.6 ratio (1.5-3.5); PROTEIN - SERUM 5.1 g/dL (6.4-8.2); SODIUM 138 mmol/L (136-145); THYROID STIMULATING HORMONE 0.44 uIU/mL (0.36-3.74); TRIGLYCERIDE 97 mg/dL (30-200); UREA NITROGEN 17 mg/dL (7-18); eGFR NON AFRICAN AMERICAN 84 mL/min (90-120)
[2016-07-12 07:26] LABS: POTASSIUM - SERUM 3.4 mmol/L (3.5-5.1)
[2016-07-12 08:13] VITALS: BP 142/65
--- NOTE | 2016-07-12 16:07 | NUR ---
ORIENTED TO PERSON ONLY. REDIRECTED FREQUENTLY BUT NO EVIDENCE OF RETAINING NOTED. COOPERATIVE WITH CARE. NO SIGNS OF HALLUCINATIONS NOTED. NO AGGRESSION NOTED. ISOLATION PRECAUTIONS MAINTAINED. FALL PRECAUTIONS MAINTAINED. MEDICATIONS ADMINISTERED ORDERED. WILL CONTINUE TO MONITOR AND CONTINUE WITH PLAN OF CARE.
--- NOTE | 2016-07-12 17:30 | NUR ---
PT MAKING STATEMENTS ABOUT VISUAL HALLUCINATIONS THAT SHE HAD ON PREVIOUS NIGHT. PT ASKED RN IF THE WOMAN FROM LAST NIGHT WOULD BE STAYING WITH HER IN HER ROOM AGAIN TONIGHT. NURSE EXPLAINED THAT THERE WAS NO ONE IN HER ROOM, BUT PT STATED THAT SHE KNEW THERE WAS A WOMAN THERE.
[2016-07-12 20:13] VITALS: BP 111/60
--- NOTE | 2016-07-13 00:30 | NUR ---
RECEIVED IN BEDROOM. LAYING IN BED WITH EYES OPEN. CALM AND COOPERATIVE WITH CARE AND ASSESSMENT BUT CONFUSED. NO SIGNS OF HALLUCINATIONS. REDIRECT AND REORIENT NEEDED. RESTING EYES CLOSED AT THIS TIME. CONTINUE PLAN OF CARE
[2016-07-13 06:14] LABS: RAPID PLASMA REAGIN Non Reactive (Non Reactive)
[2016-07-13 08:23] LABS: FOLATE (FOLIC ACID) - SERUM >20.0 ng/mL (>3.0)
[2016-07-13 08:36] VITALS: BP 110/59
--- NOTE | 2016-07-13 10:00 | NUR ---
B) Rec'd pt in day room for a.m. med pass, alert, compliant with meds, confused, delusional, no aggressive behavior exhibited. I) Admin medications as ordered and provide group therapy. R) Med compliant with no s/s adverse reaction, observes group and participates when requested. P) Cont plan of care including meds and group therapy.
[2016-07-13 10:20] LABS: VITAMIN D 25 HYDROXY 44.7 ng/mL (30.0-100.0)
--- NOTE | 2016-07-13 17:40 | PSY ---
PATIENT NAME:ADILENE CARO MEDICAL RECORD: [id number] : [birth year] LOCATION:[id number] ADMISSION DATE: 07/11/16 ACCOUNT: [id number] PSYCHIATRIC EVALUATION DATE OF EVALUATION: 07/12/16 Psychiatric Evaluation IDENTIFYING DATA: The patient is 85 years old and she was admitted to the hospital on a voluntary basis secondary to confusion and psychosis. HISTORY OF PRESENT ILLNESS: The patient initially was on the medical floor. She was under the bed and she thought that people were trying to attack her and hurt her. She was very delusional. When she was transferred to the behavioral unit, she was only oriented to person and was repeatedly making delusional statements. As it turns out, she has a daughter who is handicapped all of her life with spina bifida and that child a few years ago. The patient is quite distressed and very confused. She is unable to give much in the way of reasonable history. 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 She denies any memory problems, but clearly has a serious cognitive impairment. PAST MEDICAL HISTORY: Significant for hypertension and hypothyroidism. PAST PSYCHIATRIC HISTORY: Negative by her report that may change as other sources of information become available. ALLERGIES: SULFUR. MEDICATIONS: Include hydrochlorothiazide, metoprolol, Synthroid, potassium, Risperdal. SOCIAL HISTORY: The patient is . She does have adult children and one of her children is as mentioned. She has no history of drug or alcohol abuse and apparently functioned reasonably well both socially and occupationally. MENTAL STATUS EXAMINATION: The patient is alert and oriented to person, place and somewhat to time and situation. Her mood is flat. Her affect is constricted. Thought processes are circumstantial. Memory, concentration and abstraction abilities are moderately impaired and she denies any active intent to harm herself or others as well as overt psychotic symptoms. ASSETS: Supportive family members. LIABILITIES: Limited insight. 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 AXIS II: None. AXIS III: Hypertension, hypothyroidism. AXIS IV: Moderate stressors. AXIS V: Global assessment of functioning is 30. PLAN: At this time, the patient is admitted to the hospital for a comprehensive medical, psychological, and social evaluation. She will be tested by Dr. Susana Mantilla and I plan to reduce her dose of Risperdal by 50%. I will also start her on Namenda for its memory enhancing properties. TRANSINT:[id number] Voice Confirmation ID: [id number] DOCUMENT ID: [id number] NEO GOFF MD at 1740 CC: [id number] DICTATION DATE: 07/12/16 1506 INSURANCE CODER: 07/12/16 1646 [facility] [place] [id number] [place] [id number]
[2016-07-13 19:30] VITALS: BP 116/58
--- NOTE | 2016-07-13 23:21 | NUR ---
B) Recieved patient in the day room in a bharathi chair, alert and oriented to self and being in a hospital, calm and cooperative with care and assessment, I) Administered perscribed medications, isolation protocols in place, redirect as needed, R) Medication compliant, friendly and social with peers, P) Continue plan of care, continue to monitor.
[2016-07-14 09:32] VITALS: BP 159/71
--- NOTE | 2016-07-14 10:32 | NUR ---
B) PATIENT IS AWAKE AND SHE IS ORIENTED X 3, SHE IS CALM, SHE DOES MAKE DELUSIONAL STATEMENTS AT TIMES. SHE SAYS SHE WAS TOLD SHE WAS ACTING STRANGE AND THAT'S WHY SHE IS HERE. PATIENT CAN AMBULATE WITH A WALKER. SHE USES A CANE AT HOME. I) PROVIDE PRESCRIBED MEDS, ENCOURAGE GROUP ACTIVITY. R) PATIENT IS COMPLIANT WITH MEDS AND UNIT MILIEU. P) CONTINUE PLAN OF CARE.
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
--- NOTE | 2016-07-14 16:00 | NUR ---
PATIENT HAS BEEN SITTING QUIETLY IN THE DAY ROOM, BUT THEN SHE STARTED HALLUCINATING. SHE WAS TALKING ABOUT THE STAGE AND AUDITIONS AND STARS, SHE SAID MORE, BUT IT IS DIFFICULT TO FOLLOW.
--- NOTE | 2016-07-14 16:25 | NUR ---
CURRENTLY THE PATIENT HAS A VISITOR FROM THE [facility] AND THEY ARE CONVERSING IN THE DINING ROOM.
[2016-07-14 20:24] VITALS: BP 108/58
--- NOTE | 2016-07-15 01:56 | NUR ---
PATIENT IN DAYROOM, QUIETLY WATCHING PEERS. PLEASANT, CALM AND COOPERATIVE. ORIENTED TIMES 3. COMPLIANT WITH MEDICATION. CONTINUE PLAN OF CARE
[2016-07-15 09:01] VITALS: BP 142/72
--- NOTE | 2016-07-15 13:44 | NUR ---
B) PATIENT IS AWAKE AND ALERT, SHE IS ORIENTED, BUT REMAINS DELUSIONAL. SHE TALKS ABOUT AUDITIONS IN GUNLOCK. SHE CAN AMBULATE, BUT SHE IS IN A W/C FOR UNSTEADY GAIT, SHE REMAINS ON ISOLATION. I) PROVIDE PRESCRIBED MEDS AND ENCOURAGE GROUPS AND ACTIVITIES. R) PATIENT IS COMPLIANT WITH MEDS. SHE IS RESTING EASILY IN THE DAY ROOM CURRENTLY. P) CONTINUE PLAN OF CARE.
--- NOTE | 2016-07-15 14:12 | PN ---
PATIENT:ADILENE CARO MEDICAL RECORD: [id number] LOCATION:[facility] ADMISSION DATE: 07/11/16 PROGRESS NOTE DATE OF SERVICE: 07/14/2016 SUBJECTIVE: The patient's case was discussed with staff. She has no new complaint. OBJECTIVE: The patient denies intent to harm herself or others. She does tolerate her medicines well. She has been very confused and at times quite agitated. ASSESSMENT: No change in diagnoses. PLAN: Current medicines have been reviewed and will be maintained. Her long-term prognosis is guarded. Brief supportive and educational interventions were made. TRANSINT:[id number] Voice Confirmation ID: [id number] DOCUMENT ID: [id number] NEO GOFF MD at 1412 CC: [id number] DICTATION DATE: 07/14/16 183 CORPORATE EXECUTIVE CHEF: 07/15/16 0008 ADM IN [facility] [address] [id number]
--- NOTE | 2016-07-15 14:23 | NUR ---
SW EMAILED PT'S SON,AMINTA RIBEIRO", PER HIS REQUEST DUE TO HIM BEING OUT OF COUNTRY. SW EDUCATED ON PT'S COGNITIVE TESTING SCORE AND THE PT'S NEED FOR ASSISTANCE ON A DAILY BASIS WITH TASKS AND OBSERVATION FOR SAFETY 07/11. PT WILL BE PLACED AT [facility] FOR TEMPORARY STAY UNTIL PT'S SON COMES BACK INTO THE COUNTRY JULY 30, WHERE HE WILL MAKE A DECISION ON PLACEMENT. MANUEL ALSO SPOKE WITH PT'S PAST SALVAGE MACHINE OPERATOR, SANTA. MANUEL DISCUSSED DISCHARGE PLANS. SANTA VERBALIZED UNDERSTANDING.
[2016-07-15 21:50] VITALS: BP 118/64
--- NOTE | 2016-07-16 00:57 | NUR ---
B) Recieved sitting in a wheelchair in the day room, alert and oriented X 3, calm and cooperative with assessment and care, I) Administered perscribed medications R) Medication compliant, remains on isolation, P) Continue plan of care, continue to monitor.
[2016-07-16 09:28] VITALS: BP 121/71
[2016-07-16 09:40] VITALS: BP 129/71
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
--- NOTE | 2016-07-16 14:32 | NUR ---
B) PATIENT IS CALM AND SHE SAYS SHE FEELS WELL. SHE SAYS SHE SLEPT WELL. SHE IS CALM, NO HALLUCINATIONS NOTED. SHE CAN AMBULATE WITH A WALKER, BUT SHE IS SITTING IN A W/C. I) PROVIDE PRESCRIBED MEDS. R) PATIENT IS COMPLIANT WITH MEDS, SHE HAS NOT MADE ANY C/O TODAY NOR HAS SHE MADE ANY DELUSIONAL COMMENTS TODAY. P) CONTINUE PLAN OF CARE.
[2016-07-16 19:30] VITALS: BP 121/88
--- NOTE | 2016-07-17 00:05 | NUR ---
ATIVAN 0.5 MG PO GIVEN PER REQUEST FOR SOMETHING TO HELPHER SLEEP.
--- NOTE | 2016-07-17 01:16 | NUR ---
B) recieved patient in the day room alert and oriented X 3, calm and cooperative with assessment and care, sitting in wheelchair, socialable with staff, I) Administered perscribed medications, PRN Ativan 0.5 mg given at 0004 for anxiety and restlessness R) Medication compliant, resting now quietly in bed, P) Continue plan of care, continue to monitor.
[2016-07-17 07:00] VITALS: BP 130/56
[2016-07-17 09:10] VITALS: BP 127/50
--- NOTE | 2016-07-17 09:14 | NUR ---
Held Lopressor 100mg 0900 dose. BP = 130/56, recheck = 127/50. Did give Hydrochlorithiazide 25mg 0900 dose.
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
[2016-07-17 19:30] VITALS: BP 142/61
--- NOTE | 2016-07-17 20:19 | NUR ---
RECEIVED IN DAYRROM. SITTING IN WHEELCHAIR WITH NO STAFF OR PEERS CLOSE. CALM NAD COOPERATIVE WITH CARE AND ASSESSMENTS. NO SIGNS OF HALLUCINATIONS. ENCOURAGE TO EXPRESS NEEDS. CONTINUES TO SIT QUIETLY IN WHEELCHAIR. CONTINUE PLAN OF CARE
[2016-07-18 08:08] VITALS: BP 151/68
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
[2016-07-18 20:00] VITALS: BP 125/65
--- NOTE | 2016-07-18 20:47 | NUR ---
RECEIVED IN DAYROOM. SITTING IN WHEELCHAIR. ISOLATION CONTINUES. GOWN ON. ALERT AND ORIENTED. CALM AND COOPERATIVE WITH CARE AND ASSESMENT. NO SIGNS OF HALLUCINATIONS. ENCOURAGE TO EXPRESS NEEDS. CONTINUE TO SIT QUIETLY IN WHEELCHAIR. CONTINUE PLAN OF CARE
[2016-07-19 09:00] VITALS: BP 153/55
--- NOTE | 2016-07-19 09:23 | PN ---
PATIENT:ADILENE CARO MEDICAL RECORD: [id number] LOCATION:[facility] ADMISSION DATE: 07/11/16 PROGRESS NOTE DATE OF SERVICE: 07/18/2016 SUBJECTIVE: The patient's case was discussed with staff. She has no new complaint. OBJECTIVE: The patient denies intent to harm herself or others. She generally tolerates her medicines well. She continues to have these ongoing delusions that had been documented numerous times through the chart. However, yesterday she became anxious, restless and appeared to be escalating to the point where she was going to become aggressive and did require p.r.n. Haldol and Ativan to calm her. Since then, she has been better. As mentioned in previous note, she has a sister who had similar psychotic symptoms and was stabilized for many years on Haldol. I did start her on this a couple of days ago. I am going to increase the dose and consolidate it to a bedtime dosing because of the difficulty the nurses are getting her to take her medicine. TRANSINT:[id number] Voice Confirmation ID: [id number] DOCUMENT ID: [id number] NEO GOFF MD at 0923 CC: [id number] DICTATION DATE: 07/18/16 1431 INBOUND CALL CENTER AGENT: 07/18/16 194 ADM IN [id number] [place] [address]
[2016-07-19 14:30] VITALS: Ht 157.5 cm; Wt 52.2 kg
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
--- NOTE | 2016-07-19 19:45 | NUR ---
RECEIVED IN DAYROOM. SITTING IN CHAIR WATCHING TV. NOT SOCIALIZING WITH STAFF OR PEERS. ALERT AND ORIENTED. NO SIGNS OF HALLUCINATIONS. ENCOURAGE TO EXPRESS NEEDS. CONTINUES TO SIT QUIETLY IN CHAIR. CONTINUE PLAN OF CARE
[2016-07-19 22:29] VITALS: BP 116/55
[2016-07-20 08:44] VITALS: BP 155/71
--- NOTE | 2016-07-20 12:23 | NUR ---
B) PATIENT IS AWAKE, ORIENTED X3, SHE HAS NOT MADE ANY COMMENTS ABOUT HALLUCINATING OR ANY DELUSIONAL STATEMENTS. SHE CAN AMBULATE WITH A WALKER, BUT SHE SITS IN A W/C. I) PROVIDE PRESCRIBED MEDS, R) PATIENT IS COMPLIANT WITH MEDS, SHE SAYS HER ARTHRITIS IS BOTHERING HER TODAY. WILL MENTION THIS TO THE DR. P) CONTINUE PLAN OF CARE.
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
[2016-07-20 20:00] VITALS: BP 109/55
--- NOTE | 2016-07-20 23:29 | NUR ---
B) Recieved ptient on isolation in the day room, alert and oriented X 3, calm and cooperative with care and assessment, I) Administered perscribed medications, monitored for falls and safety, R) Medication compliant, resting now quietly in bed, P) continue plan of care.
[2016-07-21 09:05] VITALS: BP 152/105
--- NOTE | 2016-07-21 11:57 | NUR ---
B) PATIENT IS PLEASANT, SHE IS ALERT AND SHE INTERACTS WELL WITH STAFF AND PEERS, SHE STANDS AT TIMES AND SHE IS ABLE TO AMBULATE WITH A WALKER, BUT SITS IN A W/C. I) PROVIDE PRESCRIBED MEDS. R) PATIENT IS COMPLIANT WITH MEDS AND SHE LIKES THEM CRUSHED AND PUT IN PUDDING. SHE HAS NOT SAID ANYTHING DELUSIONAL OR MADE ANY COMMENTS IN REFERENCE TO HALLUCINATIONS. P) CONTINUE PLAN OF CARE.
--- NOTE | 2016-07-21 14:02 | NUR ---
Nutrition Follow Up: Chart reviewed. Pt is eating 47% meal avg on a regular diet. Pt is receiving Ensure with meals. +BM 07/20/16. No new labs to assess. Meds noted. Pt with fair po intake at this time. Rec continue current diet, supplement regimen. RD following.
--- NOTE | 2016-07-21 14:31 | PN ---
PATIENT:ADILENE CARO MEDICAL RECORD: [id number] LOCATION:[facility] ADMISSION DATE: 07/11/16 PROGRESS NOTE DATE OF SERVICE: 07/20/2016 SUBJECTIVE: The patient's case was discussed with staff. She has no new complaint. OBJECTIVE: The patient continues to be delusional, but I think she is better. After talking with her briefly and then getting up to leave, she did not say anything about her delusions. I went back and asked her about them and then she told me all about them again, but I did this on purpose. This is the first time she is not only wanted to talk to me about her delusions and I have had difficulty getting her to talk about anything else. I think the Haldol was effective. I have reviewed the family history that I have and given the fact that Adilene apparently has a long history of paranoid and psychotic behaviors, but no diagnosis of schizophrenia, I am in a predicament. 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 With the psychosis, NOS, it is certainly going to be possible to have her receive Haldol in a long-term care setting and at this point, with only 5 mg a day, she is showing improvement. I may have to increase the dose slightly, but I want to be careful, she is 85 years old and going to be very sensitive to medications. Furthermore, the psychotic symptoms are starting to respond and if this level of improvement continues, I would anticipate she could be ready for discharge in certainly no more than a week. TRANSINT:[id number] Voice Confirmation ID: [id number] DOCUMENT ID: [id number] NEO GOFF MD at 1431 CC: [id number] DICTATION DATE: 07/20/16 1416 EXCEL SPECIALIST: 07/20/16 1527 ADM IN [facility] [address] [id number]
[2016-07-21] MEDS ORDERED: ACETAMINOPHEN325 MG PO (14:42)
[2016-07-21] MEDS ORDERED: ARICEPT5 MG PO (14:42)
[2016-07-21] MEDS ORDERED: METOPROLOL TART50 MG PO (14:42)
[2016-07-21] MEDS ORDERED: HALDOL5 MG PO (14:43)
[2016-07-21] MEDS ORDERED: HCTZ25 MG PO (14:43)
[2016-07-21 19:30] VITALS: BP 120/62
--- NOTE | 2016-07-22 01:14 | NUR ---
B) Recieved in the day , alert and oriented x 3, calm and cooperative with care and assessment, I) Administered perscribed medications, maintained isolation protocols, monitored for falls and safety, R) Medications compliant, friendly and pleasant to staff, P) Continue plan of care.
--- NOTE | 2016-07-22 07:54 | NUR ---
D/C ORDERS AND MAR FAXED TO [employer] MADE HARD COPY TO GIVE TO DELIVERY RN.
[2016-07-22 08:34] VITALS: BP 138/55
--- NOTE | 2016-07-22 11:30 | NUR ---
CHANGE IN PLAN NO D/C AT THIS TIME.
--- NOTE | 2016-07-22 14:16 | NUR ---
B) PATIENT IS AWAKE AND ALERT, SHE HAS NOT MADE ANY DELUSIONAL STATEMENTS TODAY, SHE IS COMPLIANT AND SHE CAN AMBULATE WITH A WALKER. I) PROVIDE PRESCRIBED MEDS, REDIRECT NEEDED. R) PATIENT IS COMPLIANT WITH MEDS AND UNIT MILIEU, SHE HAS BEEN INTERACTING IN GROUPS AND ACTIVITIES. P) CONTINUE PLAN OF CARE.
[2016-07-22 19:30] VITALS: BP 110/86
--- NOTE | 2016-07-22 20:10 | NUR ---
B) RECEIVED ON ISOLATION IN DAYROOM SITTING IN WHEELCHAIR. ALERT AND ORIENTED X 3, CALM AND COOPERATIVE WITH ASSESMENT. I) ADMINISTERED PRESCRIBED MEDICATIONS , AND MONITORED FOR FALLS AND SAFETY. VSS. R) MEDICATION COMPLIANT, RESTING QUIETLY IN BED NOW. P) CONTINUE PLAN OF CARE.
[2016-07-23 07:44] VITALS: BP 152/85
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
[2016-07-23 19:40] VITALS: BP 127/58
--- NOTE | 2016-07-23 21:57 | NUR ---
B) Patient was very anxious at change of shift, repeatedly asking to go to her room. Asking to take money out of her cafeteria account to give tips to the staff for helping her. I) Administer medications as ordered, monitor behavior, redirect and reorient PRN. Offer reassurance and encourage to express feelings. R) No delusional statements made thus far this shift. Oriented to person, place and time but not to why she is here. Complaint with medications given crushed in chocolate pudding. Anxious, helpless, hopeless. P) Monitor per plan of care.
--- NOTE | 2016-07-24 06:18 | PN ---
PATIENT:ADILENE CARO MEDICAL RECORD: [id number] LOCATION:[facility] ADMISSION DATE: 07/11/16 PROGRESS NOTE DATE OF SERVICE: 07/22/2016 SUBJECTIVE: No new complaint. OBJECTIVE: The patient has done reasonably well over the last 24 hours. She is tolerating medications well, no new complaints. On exam, mood is pleasant and euthymic. Affect is bland. Speech is rather terse. Content of thought is negative for overt psychosis. Sensorium is unchanged. ASSESSMENT: No change in diagnosis. PLAN: 1. Continue current medications. 2. Continue supportive therapy. TRANSINT:[id number] Voice Confirmation ID: [id number] DOCUMENT ID: [id number] BONI ARROYO III, MD at 0618 CC: [id number] DICTATION DATE: 07/22/16 1234 TAXI CAB DRIVER: 07/22/16 2105 ADM IN [place] [id number] [place] [id number]
[2016-07-24 07:48] VITALS: BP 149/86
--- NOTE | 2016-07-24 17:54 | NUR ---
RECEIVED THIS AM SITTING IN RECLINER.IS ORIENTED X 3.CALM AND COOPERATIVE.MEDS TAKEN CRUSHED AND IN PUDDING.HAS 2+ EDEMA IN LOWERE EXTREMITIES.FEET ELEVATED.APPETITE POOR,REFUSES TOEAT MOST OF DIET DUE TO FEAR OF "IT WILL RUN RIGHT THROUGH ME,I HAD PART OF MY COLON REMOVED ."DOES NOT INTERACT WITH PEERS,COOPERATIVE WITH STAFF.WILL CONTINUE WITH PLAN OF CARE,MONITOR FOR SAFETY AND CHANGES.
[2016-07-24 19:30] VITALS: BP 115/81
--- NOTE | 2016-07-25 01:45 | NUR ---
PATIENT IN ROOM. PATIENT HAS COMPLAINTS OF MUSCULAR WEAKNESS. SAYS SHE HAS BEEN "GETTING WORSE THE LAST FOUR DAYS" ASSISTED PATIENT WITH NIGHT TIME TOILETRY. PATIENT IS NEAT AND ORGANIZED WITH GROOMING. SHE IS ORIENTED TO SELF, PLACE, TIME AND SITUATION. SLIP SOCKS PLACED ON PATIENT, BED IN LOW POSITION, CALL LIGHT IN REACH AND SIDE RAILS UP X 2. CONTINUE TO MONITOR, CONTINUE PLAN OF CARE.
[2016-07-25 07:46] VITALS: BP 156/72
--- NOTE | 2016-07-25 09:55 | NUR ---
MANUEL SPOKE WITH PT'S NEPHEW, KRISTI, ABOUT SIGNING PAPERWORK AT [facility] SO PT CAN DISCHARGE. HE STATED HE WILL GO SIGN THE PAPERWORK THIS EVENING.
--- NOTE | 2016-07-25 14:58 | PN ---
PATIENT:ADILENE CARO MEDICAL RECORD: [id number] LOCATION:[facility] ADMISSION DATE: 07/11/16 PROGRESS NOTE DATE OF SERVICE: 07/21/2016 SUBJECTIVE: The patient's case was discussed with staff. She has no new complaint. OBJECTIVE: The patient is clearly better. We have a conversation about casual things that are of no particular importance, but her mood was euthymic and she was appropriate. I asked her about delusions and she told me about them. She still has the same very bizarre delusions, but she is telling them to me only after I bring them up and she is telling them to me without anything close to the emotional intensity that she had just a couple of days ago. She is clearly responding to the Haldol. ASSESSMENT: No change in diagnoses. PLAN: This patient has a sister who responded to Haldol and was diagnosed with a chronic mental illness. The longitudinal history on this patient sounds very consistent with a thinking disorder, even though she has never been diagnosed with one. She is on 5 mg of Haldol, which may end up being a little bit hot and if I were going to see her on an outpatient basis, I would probably just titrate it down to a milligram or 2 at bedtime and see if that would continue to have improvement. Because of the bizarre nature of inpatient psychiatric care today, there seems to be an expectation that is not consistent with reality. That reality is it actually takes weeks and months for antipsychotic medications to have their full effect and the fact that she has had a nice and relatively robust response in just a few days, it is a good harbinger for future improvement. TRANSINT:[id number] Voice Confirmation ID: [id number] DOCUMENT ID: [id number] NEO GOFF MD at 1458 CC: [id number] DICTATION DATE: 07/21/16 1440 CLOSING SUPERVISOR: 07/21/162002 ADM IN [facility] [address] [place] [address]
--- NOTE | 2016-07-25 17:55 | NUR ---
B.) Alert and oriented times 3. Cooperative and pleasant. I.) Administer prescribed medications and monitor compliance. Redirect to reality versus nonreality for any delusions. Maintain contact precautions. R.) Compliant with medications. Remains alert and oriented times three with no delusions. Contact precautions maintained. P.) Continue plan of care.
[2016-07-25 20:00] VITALS: BP 135/75
--- NOTE | 2016-07-25 20:03 | NUR ---
RECEIVED IN DAYROOM. SITTING IN WHEELCHAIR. NOT SOCIALIZING. ISOLATION GOWN ON. NO SIGNS OF PARANOIA. ENCOURAGE TO EXPRESS NEEDS. CONTINUES TO LAY ING RECLINER YELLING OUT AT TIMES. CONTINUE PLAN OF CARE
[2016-07-26 07:25] VITALS: BP 151/73
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
--- NOTE | 2016-07-26 15:38 | NUR ---
NUTRITION MONITORING & EVAL CHART REVIEWED. TOLERATING REG DIET. ~40% AVERAGE INTAKE PAST 6 MEALS. +BM RECORDED 07/24/16. WILL CONTINUE TO PROVIDE DIET, MONITOR PO INTAKE, PT PROGRESS. RD FOLLOWING
[2016-07-26 19:16] VITALS: BP 138/73
--- NOTE | 2016-07-26 19:55 | NUR ---
RECEIVED IN DAYROOM. SITTING IN RECLINER WITH EYES CLOSED. RESPONDS TO VOICE. ALERT SNF ORIENTED. CONTACT ISOLATION CONTINUES. ENCOURAGE TO EXPRESS NEEDS. CONTINUES TO SIT QUIETLY IN RECLINER. CONTINUE PLAN OF CARE
[2016-07-27 07:09] LABS: ANION GAP 9.7 mmol/L (8-16); CALCIUM 11.5 mg/dL (8.5-10.1); CARBON DIOXIDE 31.6 mmol/L (21.0-32.0); CREATININE - SERUM 0.8 mg/dL (0.6-1.3); POTASSIUM - SERUM 3.3 mmol/L (3.5-5.1)
[2016-07-27 08:06] VITALS: BP 144/69
--- NOTE | 2016-07-27 12:08 | NUR ---
REPORT CALLED TO EDVIN WHITING LPN.
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
--- NOTE | 2016-07-27 13:01 | NUR ---
DISCHARGED TO [facility]OM[facility] BY [facility] STAFF VIA FACILITY VEHICLE. PERSONAL ITEMS RETURNED AND SENT WITH PATIENT. PAPERWORK FAXED TO FACILITY AND HARDCOPY SENT WITH FACILTIY STAFF. CONDITION STABLE AT TIME OF DISCHARGE.
--- NOTE | 2016-07-27 16:33 | PN ---
PATIENT:ADILENE CARO MEDICAL RECORD: [id number] LOCATION:[facility] ADMISSION DATE: 07/11/16 PROGRESS NOTE DATE OF SERVICE: 07/26/2016 SUBJECTIVE: The patient's case was discussed with staff. She has no new complaint. OBJECTIVE: The patient is quite confused and has severe impairment of her short-term memory. She is pleasant and not aggressive and her delusional symptoms have almost completely resolved. ASSESSMENT: No change in diagnoses. PLAN: The patient will be discharged as soon as arrangements can be made. There is an issue with her son and the usp getting the paper signed; apparently, the son is on a business trip to [place]. Nevertheless, she is ready for discharge and can be discharged as soon as those arrangements are made. TRANSINT:[id number] Voice Confirmation ID: [id number] DOCUMENT ID: [id number] NEO GOFF MD at 1633 CC: [id number] DICTATION DATE: 07/26/162115 OUTDOOR ADVENTURE INSTRUCTOR: 07/26/162150 DIS IN 07/27/16 [facility] [address] [place] [address]
== END 2016-07-27 13:04 | DRG 57 ==
LOC: D.PSYCH 17:50
PROVIDERS: Family Medicine; ADMIT Psychiatry & Neurology Psychiatry
DX: G30.1 Alzheimer's disease with late onset (principal); F02.80 Dementia in other diseases classified elsewhere, unspecified severity, without behavioral disturbance, psychotic disturbance, mood disturbance, and anxiety; I10 Essential (primary) hypertension; E03.9 Hypothyroidism, unspecified; R26.9 Unspecified abnormalities of gait and mobility; E87.6 Hypokalemia; E83.42 Hypomagnesemia; Z91.81 History of falling; H54.41 Blindness, right eye, normal vision left eye; F41.9 Anxiety disorder, unspecified; F32.9 Major depressive disorder, single episode, unspecified

== ENCOUNTER 2016-12-06 23:45 | Inpatient (IN) | payer MEDICARE ==
[~2016-12-06 23:45] MED LIST changes: +ACETAMINOPHEN325 MG PO; +ARICEPT5 MG PO; +HALDOL5 MG PO; +HCTZ25 MG PO; +METOPROLOL TART50 MG PO
[2016-12-07 00:32] LABS: BASOPHILS 0.2 % (0-2); EOSINOPHILS 5.3 % (0-7); HEMATOCRIT 47.7 % (36.0-48.0); HEMOGLOBIN 15.5 g/dL (12-16); IMMATURE GRANULOCYTES 0.2 % (0-5); LYMPHOCYTES 20.4 % (15-50); MCHC 32.5 g/dL (31.0-37.0); MCV 92.3 fL (80.0-100.0); MEAN PLATELET VOLUME 11.7 fL (7.4-10.4); MONOCYTES 6.9 % (2-11); PLATELET COUNT 214 10x3/uL (130-400); RBC 5.17 10x6/uL (4.00-5.40); RDW 13.6 % (11.5-14.5); WBC 11.5 10x3/uL (4.8-10.8)
[2016-12-07 00:49] LABS: ALBUMIN 3.1 g/dL (3.4-5.0); ANION GAP 9.7 mmol/L (8-16); BILIRUBIN - TOTAL 0.47 mg/dL (0.2-1.3); CALCIUM 10.6 mg/dL (8.5-10.1); CARBON DIOXIDE 33.5 mmol/L (21.0-32.0); POTASSIUM - SERUM 4.2 mmol/L (3.5-5.1); PROTEIN - SERUM 6.3 g/dL (6.4-8.2)
[2016-12-07 01:46] LABS: APPEARANCE HAZY (CLEAR); BILIRUBIN NEGATIVE (NEGATIVE); COLOR YELLOW (YELLOW); GLUCOSE NEGATIVE (NEGATIVE); KETONE NEGATIVE (NEGATIVE); LEUKOCYTE ESTERASE TRACE (NEGATIVE); NITRITE NEGATIVE (NEGATIVE); PROTEIN TRACE mg/dL (NEGATIVE); UROBILINOGEN NORMAL (NORMAL)
[2016-12-07 01:47] LABS: AMORPHOUS SEDIMENT <1+ /lpf (NONE SEEN); BACTERIA FEW /hpf (NONE SEEN); EPITHELIAL CELLS 0-5 /hpf (0-5); HYALINE CAST 0-5 /lpf (NONE SEEN); RED CELLS - URINE NONE SEEN /hpf (0-5); WHITE CELLS - URINE 0-5 /hpf (0-5)
--- NOTE | 2016-12-07 03:19 | NUR ---
RECEIVED PATIENT FROM ER VIA [facility] TO ROOM 1217. PT LETHARGIC BUT OPENS EYES WHEN NAME CALLED. PT NON-VERBAL, NON-AMBULATORY. INITIAL V/S TAKEN. ASSESSMENT DONE. STATUS Dx: ELECTROLYTE IMBALANCE/DECREASED LEVEL OF CONSCIOUSNESS. PLAN OF CARE INITIATED.
[2016-12-07 03:20] VITALS: BP 123/67
--- NOTE | 2016-12-07 05:40 | NUR ---
STILL NON VERBAL,WITHOUT DISTRESS.DOOR OPEN TO MONITOR
--- NOTE | 2016-12-07 07:30 | NUR ---
AWAKE AND ALERT. ORIENTED X3. APPEARS SOMEWHAT LETHARGIC AT TIME. LUNGS ARE CLEAR BILATERALLY, NO COUGH NOTED. SKIN IS INTACT WITHOUT REDNESS. IV TO RIGHT HAND IS PATENT WITHOUT REDNESS AT INSERTION SITE. DENIES NEEDS. NPO AT THIS TIME.
[2016-12-07 08:26] VITALS: BP 147/72
[2016-12-07 10:27] LABS: BASOPHILS 0.2 % (0-2); EOSINOPHILS 7.7 % (0-7); HEMATOCRIT 43.9 % (36.0-48.0); IMMATURE GRANULOCYTES 0.1 % (0-5); LYMPHOCYTES 25.1 % (15-50); MCH 29.7 pg (26.0-34.0); MCHC 31.9 g/dL (31.0-37.0); MCV 93.2 fL (80.0-100.0); MEAN PLATELET VOLUME 11.9 fL (7.4-10.4); MONOCYTES 7.4 % (2-11); NEUTROPHILS 59.5 % (40-80); PLATELET COUNT 159 10x3/uL (130-400); RBC 4.71 10x6/uL (4.00-5.40); RDW 13.5 % (11.5-14.5); WBC 9.1 10x3/uL (4.8-10.8)
--- NOTE | 2016-12-07 10:34 | NUR ---
RESTING QUIETLY WITH EYES CLOSED.
[2016-12-07 10:43] VITALS: Ht 157.5 cm
[2016-12-07 10:43] LABS: ALBUMIN 2.7 g/dL (3.4-5.0); ANION GAP 7.8 mmol/L (8-16); BILIRUBIN - TOTAL 0.35 mg/dL (0.2-1.3); CARBON DIOXIDE 32.8 mmol/L (21.0-32.0); CREATININE - SERUM 0.8 mg/dL (0.6-1.3); POTASSIUM - SERUM 3.6 mmol/L (3.5-5.1); PROTEIN - SERUM 5.2 g/dL (6.4-8.2)
--- NOTE | 2016-12-07 12:15 | NUR ---
UCHECH SERVED IN ROOM. REFUSED TO EAT BUT 3 BITES WHICH STAFF FED HER. STATED SHE WAS FULL. DRANK 720 CC FLUIDS THOUGH. WILL CONTINUE TO MONITOR.
--- NOTE | 2016-12-07 15:00 | NUR ---
UP TO BATHROOM WITH SON'S ASSIST. VOIDED SMALL AMOUNT OF URNIE. SKIN CARE PER STAFF. REPOSITIONED IN BED FOR COMFORT.
[2016-12-07 16:40] VITALS: BP 121/68
--- NOTE | 2016-12-07 17:00 | NUR ---
JUAN SERVED IN ROOM. PATIENT IS VERY CONFUSED AT THIS TIME. ATTEMPT TO REORIET WITH LITTLE SUCCESS. SIDE RAILS UP X2 AND BED ALARM ON. WILL MONITOR.
--- NOTE | 2016-12-07 18:39 | NUR ---
RESTING QUIETLY AT THIS TIME. NO NEEDS NOTED. CONTINUES TO BE CONFUSED.
--- NOTE | 2016-12-07 19:30 | NUR ---
PM ROUNDS MADE, PTS LEFT LEGS ARE THROUGH THE LOWER BED RAIL, REPOSITIONED PT, RE-ORIENTED PT, PT CONFUSED, INFORMED PT THAT I WILL BE IN SHORTLY TO DO ASSESSMENT, BED IN LOW POSITION, SIDE RAILS X 3, CALL LIGHT IN REACH, BOX ALARM ON AND WORKING PROPERLY
--- NOTE | 2016-12-07 20:10 | NUR ---
PT'S SON AT [facility], INFORMS ME PT NEEDS TO USE THE BR, THIS RN AND PT'S SON ASSISTS PT TO BR, GAIT UNSTEADY, PT TO COMMODE, DID NOT VOID, CATHLEEN CARE DONE WITH WET WARM WIPES, BRIEFS CHANGED, PT BACK TO BED, BED IN LOW POSITION, SIDE RAILS X 3, CALL LIGHT IN REACH, BOX ALARM ON AND WORKING PROPERLY
[2016-12-07 20:31] VITALS: BP 126/67
--- NOTE | 2016-12-07 21:25 | NUR ---
ASSESSMENT PER FLOW SHEET, IV IN RIGHT HAND INTACT WITH NO REDNESS OR EDEMA INFUSING D5NS AT 50 ML/HR PER MD ORDERS, SEE EMAR, PT REPORTS NEEDING TO VOID, THIS RN AND MARITO GUIDO, ZELDA ASSISTS PT UP TO BR, GAIT UNSTEADY, PT TO COMMODE, PT DID NOT VOID AT THIS TIME, BRIEFS DRY, PT BACK TO BED, PT RE-ORIENTED, PT DENIES NEEDS OR PAIN, BED IN LOW POSITION, SIDE RAILS X 3, CALL LIGHT IN REACH, BOX ALARM ATTACHED TO PT AND WORKING PROPERLY
--- NOTE | 2016-12-07 22:30 | NUR ---
PT AWAKE, PT REORIENTED, INST PT TO TRY AND CLOSE HER EYES TO GET SOME REST, BED IN LOW POSITION, SIDE RAILS X 2, CALL LIGHT IN REACH, BOX ALARM ON AND WORKING PROPERLY
[2016-12-08 00:33] VITALS: BP 124/57
--- NOTE | 2016-12-08 00:33 | NUR ---
PT RESTING WITH EYES CLOSED, VS OBTAINED PER MARITO GUIDO RN, SCD'S PLACED ON AND WORKING PROPERLY, BED IN LOW POSITION, SIDE RAILS UP, BOX ALARM ON AND WORKING PROPERLY
--- NOTE | 2016-12-08 02:02 | NUR ---
PT AWAKE, PT CONFUSED, REORIENTED PT, INST PT TO CLOSE EYES AND GET SOME REST
--- NOTE | 2016-12-08 03:26 | NUR ---
PT RESTING WITH EYES CLOSED, RESP QUIET, NO DISTRESS NOTED, LEFT UNDISTURBED AT THIS TIME, BED IN LOW POSITION, SIDE RAILS UP, CALL LIGHT IN REACH, BOX ALARM ATTACHED AND WORKING PROPERLY
[2016-12-08 04:40] VITALS: BP 111/67
--- NOTE | 2016-12-08 04:40 | NUR ---
PT AWAKE, LAB JUST FINISHED DRAWING BLOOD, PT CLEANED UP WITH WET WARM WASH CLOTH, SMALL BM NOTED, BRIEFS CHANGED, TRASH REMOVED, VS OBTAINED, INFORMED PT THAT I WILL BE BACK SHORTLY TO ADM MEDS, PT VERBALIZES UNDERSTANDING, SCD'S PLACED BACK ON AND WORKING PROPERLY, BOX ALARM ATTACHED AND WORKING PROPERLY, BED IN LOW POSITION, SIDE RAILS X 3, CALL LIGHT IN REACH
--- NOTE | 2016-12-08 05:18 | NUR ---
PT AWAKE, ADM 0600 MEDS IN APPLESAUCE, PT ABRAHAM WELL, PT HAD A FEW SIPS OF CRANBERRY JUICE, PT DENIES FURTHER NEEDS OR PAIN AT THIS TIME, BED IN LOW POSITION, SIDE RAILS X 3, CALL LIGHT IN REACH, BOX ALARM ATTACHED AND WORKING PROPERLY, SCD'S CONTINUE ON AND WORKING PROPERLY
[2016-12-08 06:01] LABS: BASOPHILS 0.1 % (0-2); EOSINOPHILS 6.3 % (0-7); HEMATOCRIT 42.2 % (36.0-48.0); HEMOGLOBIN 14.1 g/dL (12-16); IMMATURE GRANULOCYTES 0.2 % (0-5); LYMPHOCYTES 18.9 % (15-50); MCH 30.1 pg (26.0-34.0); MCHC 33.4 g/dL (31.0-37.0); MEAN PLATELET VOLUME 12.4 fL (7.4-10.4); MONOCYTES 5.8 % (2-11); NEUTROPHILS 68.7 % (40-80); PLATELET COUNT 181 10x3/uL (130-400); RBC 4.68 10x6/uL (4.00-5.40); RDW 13.2 % (11.5-14.5)
[2016-12-08 06:12] LABS: MCV 90.2 fL (80.0-100.0); WBC 11.5 10x3/uL (4.8-10.8)
[2016-12-08 06:53] LABS: CALCIUM 10.2 mg/dL (8.5-10.1); CARBON DIOXIDE 29.1 mmol/L (21.0-32.0); CREATININE - SERUM 0.8 mg/dL (0.6-1.3); MAGNESIUM - SERUM 1.4 mg/dL (1.8-2.4); POTASSIUM - SERUM 3.1 mmol/L (3.5-5.1); THYROID STIMULATING HORMONE 0.44 uIU/mL (0.36-3.74)
--- NOTE | 2016-12-08 07:00 | NUR ---
SHIFT REPORT TO DAY SHIFT
--- NOTE | 2016-12-08 08:08 | NUR ---
received in bed in room 1217. awake. talking to self. oreiented to person only. disoriented. v/s done. noted breakfast in front of pt. will assist with feeding after assess. bs + x4 quad. no resp distress. attempting to get out of bed. scd's on pt. iv site to rt hand without edema or erythema
[2016-12-08 08:12] VITALS: BP 144/67
--- NOTE | 2016-12-08 09:26 | NUR ---
pt moved by bed to room 1221 for better viewing by nursing staff r/t pt trying to get out of bed.
--- NOTE | 2016-12-08 11:04 | NUR ---
PT GIVEN AM MEDS. SHE TOOK PILLS WITH SIPS OF WATER. SHE IS TALKING BUT IS CONFUSED. BED IS LOW, SIDE RAILS UP X 2 AND CALL LIGHT IN REACH.
[2016-12-08 11:45] VITALS: BP 129/52
--- NOTE | 2016-12-08 13:30 | NUR ---
PT IS RESTING IN BED. SHE WILL AROUSE WHEN TALKED TO. SHE HAS CONFUSION. BED IS LOW, SIDE RAILS UP X 2. CALL LIGHT IN REACH. PT IS CHECKED ON FREQUENTLY.
--- NOTE | 2016-12-08 14:03 | NUR ---
PT IS LYING IN BED. SHE IS TALKING AND CONFUSED. WE CLEANED PT UP. WE BATHED HER AND DRYED HER GOOD. SHE HAS 4 SMALL EXCORIATED AREAS ACROSS MID BUTTOCKS. APPLIED DESITIN TO THIS AREA AT THIS TIME TO PROTECT. NEW PADS WERE PLACED AND PATIENT REPOSITIONED IN BED. BED IS LOW, SIDE RAILS UP X 2 AND CALL LIGHT IN REACH.
--- NOTE | 2016-12-08 15:00 | NUR ---
* Is the patient Alert and Oriented? Yes 0 * How many steps to enter\exit or inside your home? 0 0 * Preadmission Environment Sales Center Manager [facility] 0 * Facility Name [facility] 0 * ADLs Total Dependent 0 * List name and contact numbers for known caregivers / representatives who currently or will assist patient after discharge: Son Jhonatan Hoover [phone] Nephew Jhonatan Quinones [phone] 0 * Additional services required to return to the preadmission environment? Yes 0 * Can the patient safely return to the preadmission environment? Yes 0 * Has this patient been hospitalized within the prior 30 days at any hospital? No Patient Name: ADILENE HOOVER Admission Status: Elective Accout number: [id number] Admission Date: 12-07-2016 : 1930 Admission Diagnosis: Attending: VEENA JUAREZ Current LOS: 1 Planned Disposition: Nursing Facility [facility] Discharge Planning Comments: Patient alert but confused. Spoke with son, Justine Hoover, via telephone. Justine rushing patient is a custodial care resident at [facility]. She is dependent for all ADL's, including feeding. He voices concerns about her overall PO intake at facility. Answered questions. He is wanting to avoid a PEG tube. He plans for patient to return to [facility] at discharge. CM will follow & assist as needed. Flask Pusher: Chelsy Arreguin
[2016-12-08 15:45] VITALS: BP 109/55
--- NOTE | 2016-12-08 16:20 | NUR ---
PT MOVING ARMS IN BED. FIXING COVERS FREQ. CONTINUES TO BE CONFUSED.
[2016-12-08 19:45] VITALS: BP 135/77
--- NOTE | 2016-12-08 19:45 | NUR ---
ASSESSMENT PER FLOW SHEET, VS OBTAINED, IV IN RIGHT HAND INTACT WITH NO REDNESS OR EDEMA INFUSING VIA PUMP D5NS AT 50 ML/HR, PT INCONTINENT, PT VERY WET, PT CLEANED UP WITH WET WARM WIPES, BLUE CHUX, PINK PAD, GOWN, AND TOP LINEN CHANGED, PT CONFUSED, PT ORIENTED, SCD'S ON AND WORKING PROPERLY, BED IN LOW POSITION, SIDE RAILS X 2, CALL LIGHT IN REACH, BOX ALARM ATTACHED AND WORKING PROPERLY
--- NOTE | 2016-12-08 20:34 | NUR ---
MAGALIE VOSS RN HUNG FIRST DOSE OF KCL PER MD ORDERS FOR ELECTROLYTE PROTOCOL
--- NOTE | 2016-12-08 21:28 | NUR ---
2ND DOSE HUNG IVPB PER MD ORDERS, SEE EMAR, PT DENIES NEEDS, BED IN LOW POSITION, SIDE RAILS X 3, CALL LIGHT IN REACH, BOX ALARM ATTACHED AND WORKING PROPERLY
--- NOTE | 2016-12-08 22:31 | NUR ---
3RD DOSE OF KCL HUNG IVPB PER MD ORDERS, SEE EMAR, PT CONFUSED, REORIENTED, BED IN LOW POSITION, SIDE RAILS UP, CALL LIGHT IN REACH, BOX ALARM ON AND WORKING PROPERLY
--- NOTE | 2016-12-08 23:44 | NUR ---
4TH BAG OF KCL HUNG PER MD ORDERS, SEE EMAR
[2016-12-09] VITALS: BP 126/70
--- NOTE | 2016-12-09 | NUR ---
PT CLEANED UP WITH WET WARM WIPES, BLUE CHUX AND BRIEF CHANGED, CALMOSEPTINE APPLIED, PT REPOSITIONED TO RIGHT SIDE WITH PILLOW BEHIND BACK AND IN FRONT OF ABD FOR COMFORT AND SUPPORT, FEET BRIDGED, WARM BLANKET PLACED ON PT, SCD'S CONTINUE ON AND WORKING PROPERLY, BED IN LOW POSITION, SIDE RAILS UP, CALL LIGHT IN REACH, BOX ALARM ATTACHED AND WORKING PROPERLY, VS OBTAINED
--- NOTE | 2016-12-09 01:50 | NUR ---
PT CONTINUES TALKING, PT IS CONFUSED, LAB TO ROOM FOR POTASSIUM BLOOD DRAW, PT REORIENTED
--- NOTE | 2016-12-09 02:29 | NUR ---
PT CONTINUES TALKING, ENC PT TO GET SOME SLEEP, PT CONFUSED, PT REORIENTED
[2016-12-09 03:50] VITALS: BP 136/54
--- NOTE | 2016-12-09 03:50 | NUR ---
PT AWAKE, CONFUSED, PT ORIENTED TO PLACE, TIME, AND SITUATION, PT CLEANED UP WITH WET WARM WIPES, BLUE CHUX AND BRIEF CHANGED, CALMOSEPTINE APPLIED, PT REPOSITIONED TO LEFT SIDE WITH PILLOW BEHIND BACK AND IN FRONT OF ABD FOR COMFORT AND SUPPORT, FEET BRIDGED, PT DENIES NEEDS, BED IN LOW POSITION, SIDE RAILS X 2, CALL LIGHT IN REACH, SCD'S ON AND WORKING PROPERLY, BOX ALARM ATTACHED AND WORKING PROPERLY, VS OBTAINED
--- NOTE | 2016-12-09 05:31 | NUR ---
PT AWAKE, PT CONFUSED, ORIENTED PT, ADM 0600 MEDS PER MD ORDERS, SEE EMAR, IN VANILLA PUDDING, PUMPS CLEARED, BED IN LOW POSITION, SIDE RAILS X 3, CALL LIGHT IN REACH, BOX ALARM ON AND WORKING PROPERLY
--- NOTE | 2016-12-09 07:04 | NUR ---
SHIFT REPORT TO MICKI VO RN
[2016-12-09 07:18] LABS: HEMATOCRIT 42.5 % (36.0-48.0); HEMOGLOBIN 14.5 g/dL (12-16); LYMPHOCYTES 23.1 % (15-50); MCH 29.5 pg (26.0-34.0); MCHC 34.1 g/dL (31.0-37.0); NEUTROPHILS 67.9 % (40-80); PLATELET COUNT 186 10x3/uL (130-400); RBC 4.92 10x6/uL (4.00-5.40); RDW 13.2 % (11.5-14.5); WBC 8.8 10x3/uL (4.8-10.8)
[2016-12-09 07:19] LABS: MCV 86.4 fL (80.0-100.0)
[2016-12-09 07:45] VITALS: BP 125/46
[2016-12-09 07:48] LABS: ALBUMIN 2.8 g/dL (3.4-5.0); ANION GAP 12.8 mmol/L (8-16); BILIRUBIN - TOTAL 0.71 mg/dL (0.2-1.3); CALCIUM 10.3 mg/dL (8.5-10.1); CARBON DIOXIDE 25.4 mmol/L (21.0-32.0); CREATININE - SERUM 0.8 mg/dL (0.6-1.3); POTASSIUM - SERUM 3.2 mmol/L (3.5-5.1); PROTEIN - SERUM 5.7 g/dL (6.4-8.2)
--- NOTE | 2016-12-09 08:00 | NUR ---
PT WAS RECEIVED LYING IN BED. SHE OFFERS NO COMPLAINTS. SHE IS CONFUSED AND TALKING. VSS. IV PATENT R HAND WITH D5W INFUSING. SCD'S INTACT. PT WAS JUST CLEANED AND TURNED ON R SIDE. GEN- AWAKE AND ALERT, CONFUSED. LUNGS- CLEAR. HEART- RRR. ABD- SOFT, NT, BS+, EXT- NO EDEMA. PULSES INTACT. PILLOWS ARE UNDER HER FEET AND ROLLED UP TOWEL NOTED BETWEEN HER LEGS. BED IS LOW. SIDE RAILS UP X 2 AND CALL LIGHT IN REACH. BED ALARM IS ON.
--- NOTE | 2016-12-09 09:30 | NUR ---
PT IS RESTING IN BED AND TALKING OFF AND ON. SHE IS CONFUSED BUT IS NOT AGITATED. BED IS LOW, SIDE RAILS UP X 2 AND CALL LIGHT IN REACH. BED ALARM IS ON/
--- NOTE | 2016-12-09 10:45 | NUR ---
PTS BRIEF CHANGED AND CLEANED UP. PT IS AGREEABLE TO PLANS. BED ALARM INTACT.
--- NOTE | 2016-12-09 12:15 | NUR ---
PT IS SERVED LUNCH. PT ATE A LITTLE VANILLA PUDDING AND DRANK SOME WATER. REFUSE TO EAT ANYTHING ELSE.
--- NOTE | 2016-12-09 12:47 | NUR ---
Patient Name: ADILENE CARO Encounter No: [id number] : 1930 Primary Insurance: UNINSURED DISCOUNT PLAN Anticipated DC Date: 12-09-2016 Planned Disposition: Nursing Facility [facility] Cert External Planned Provider: Terri Joya DCP follow-up note: DC order rec'd. Notified Yudith with Terri of discharge. Transport van will pick patient up around 1400 today. Nursing to call report to [phone]. Patient will transfer to a [facility] bed at facility. DC Med Rec faxed to facility. Chelsy Arreguin
--- NOTE | 2016-12-09 13:00 | NUR ---
PT WAS CLEANED AND DRESSED. SHE WAS INCONTINENT OF URINE. SHE WAS WASHED. LINENS CHANGED AND CALMOSEPTINE APPLIED. SHE HAD A SMALL BM. BED IS LOW, SIDE RAILS UP X 3 AND CALL LIGHT IN REACH.
--- NOTE | 2016-12-09 14:57 | NUR ---
PT WAS PICKED UP BY [facility]. SHE WAS TRANSPORTED BY WHEELCHAIR. SHE WAS TRANSFERRED TO WHEELCHAIR WITHOUT DIFFICULTIES. HER SON IS HERE WITH HER. BELONGINGS GATHERED UP AND GIVEN TO ALF EMPLOYEE AND HER SON.
== END 2016-12-09 15:00 | DRG 641 ==
LOC: D.ER 23:45 → D.WS 12-07 02:58
PROVIDERS: Emergency Medicine; ADMIT Family Medicine
DX: E87.1 Hypo-osmolality and hyponatremia (principal); F02.81 Dementia in other diseases classified elsewhere, unspecified severity, with behavioral disturbance; G30.9 Alzheimer's disease, unspecified; F41.8 Other specified anxiety disorders; I10 Essential (primary) hypertension; E03.9 Hypothyroidism, unspecified; M19.90 Unspecified osteoarthritis, unspecified site; Z74.09 Other reduced mobility

== ENCOUNTER 2016-12-11 15:38 | Inpatient (IN) | payer MEDICARE ==
[2016-12-11 16:21] LABS: BASOPHILS 0.2 % (0-2); EOSINOPHILS 3.5 % (0-7); HEMATOCRIT 43.4 % (36.0-48.0); HEMOGLOBIN 14.5 g/dL (12-16); IMMATURE GRANULOCYTES 0.1 % (0-5); MCH 29.6 pg (26.0-34.0); MCHC 33.4 g/dL (31.0-37.0); MCV 88.6 fL (80.0-100.0); MEAN PLATELET VOLUME 12.2 fL (7.4-10.4); MONOCYTES 8.5 % (2-11); NEUTROPHILS 64.7 % (40-80); PLATELET COUNT 201 10x3/uL (130-400); RDW 13.3 % (11.5-14.5); WBC 8.4 10x3/uL (4.8-10.8)
[2016-12-11 16:39] LABS: APPEARANCE HAZY (CLEAR); BILIRUBIN NEGATIVE (NEGATIVE); COLOR DK YELLOW (YELLOW); GLUCOSE NEGATIVE (NEGATIVE); KETONE NEGATIVE (NEGATIVE); NITRITE NEGATIVE (NEGATIVE); PROTEIN NEGATIVE (NEGATIVE); SPECIFIC GRAVITY 1.025 (1.005-1.020); UROBILINOGEN NORMAL (NORMAL)
[2016-12-11 16:41] LABS: BACTERIA FEW /hpf (NONE SEEN); EPITHELIAL CELLS 0-5 /hpf (0-5); RED CELLS - URINE 0-5 /hpf (0-5); WHITE CELLS - URINE 25-50 /hpf (0-5)
[2016-12-11 16:42] LABS: MUCUS <1+ /lpf (NONE SEEN)
[2016-12-11 16:57] LABS: ALBUMIN 3.1 g/dL (3.4-5.0); ANION GAP 9.4 mmol/L (8-16); BILIRUBIN - TOTAL 0.5 mg/dL (0.2-1.3); CALCIUM 11.3 mg/dL (8.5-10.1); POTASSIUM - SERUM 3.4 mmol/L (3.5-5.1); PROTEIN - SERUM 5.9 g/dL (6.4-8.2)
[2016-12-11 17:05] LABS: MAGNESIUM - SERUM 1.9 mg/dL (1.8-2.4); TROPONIN-I 0.042 ng/mL (0.000-0.060)
[2016-12-11 20:00] VITALS: BP 124/47
[2016-12-11] MEDS ORDERED: K-PHOS ORIGINA500 MG PO (23:23)
[2016-12-11] MEDS ORDERED: MELATONIN 3 MG1 TAB PO (23:23)
[2016-12-11] MEDS ORDERED: MIRAPEX0.25 MG PO (23:25)
[2016-12-11] MEDS ORDERED: QUESTRAN PACK4 G/PKT PO (23:27)
[2016-12-11] MEDS ORDERED: ULTRAM50 MG PO ×2 (23:28→23:29)
[2016-12-11] MEDS ORDERED: KLONOPIN0.5 MG PO (23:30)
[2016-12-11] MEDS ORDERED: REMERON15 MG PO (23:31)
[2016-12-12] VITALS (8 sets, daily range): BP systolic 103–128; BP diastolic 42–72; BMI 24.7
--- NOTE | 2016-12-12 00:46 | NUR ---
RN NOTE: PT RESING QUIETLY AT THIS TIME WITH EYES CLOSED AND UNLABORED BREATHING. IV IN RIGHT HAND PATENT WITH LR AT 100 ML /HR. VOGT CATHETER DRAINING TO GRAVITY WITH YELLOW URINE IN COLLECTION BAG. WILL MONITOR CLOSELY FOR NEEDS.
--- NOTE | 2016-12-12 01:10 | NUR ---
ASSESSMENT PER ADMIT PACKET. PT LETHARGIC AROUSES TO VERBAL STIMULI NO VERBAL RESPONSE. IV PATENT RTHAND LR AT 50CC'S/HR. SITE CLEAR. SR UP X2 CALL LIGHT WITHIN REACH CHEL MAT ON.
--- NOTE | 2016-12-12 07:05 | NUR ---
PT SITTING UP IN BED ASLEEP, WITH NO VISABLE SIGN OF PAIN OR DISCOMFORT AT THIS TIME. BED IN LOW POSITON AND CALL LIGHT WITHIN REACH. WILL CONTINUE TO MONITOR.
--- NOTE | 2016-12-12 07:15 | NUR ---
REPORT RECEIVED FROM FIRE EXTINGUISHER INSPECTOR NURSE. CALL LIGHT IN REACH.
--- NOTE | 2016-12-12 08:44 | NUR ---
ASSESSMENT COMPLETED. AM MEDS ADMINISTERD. CALL LIGHT IN REACH. WILL CONTINUE WITH PLAN OF CARE. CHEL MAT ALARM ON.
[2016-12-12 09:53] LABS: BASOPHILS 0.2 % (0-2); EOSINOPHILS 6.8 % (0-7); HEMATOCRIT 39.1 % (36.0-48.0); HEMOGLOBIN 12.8 g/dL (12-16); IMMATURE GRANULOCYTES 0.1 % (0-5); LYMPHOCYTES 21.6 % (15-50); MCH 29.8 pg (26.0-34.0); MCHC 32.7 g/dL (31.0-37.0); MEAN PLATELET VOLUME 11.9 fL (7.4-10.4); MONOCYTES 7.6 % (2-11); NEUTROPHILS 63.7 % (40-80); PLATELET COUNT 205 10x3/uL (130-400); RDW 13.6 % (11.5-14.5)
[2016-12-12 10:03] LABS: MCV 90.9 fL (80.0-100.0)
[2016-12-12 10:11] LABS: ALBUMIN 2.7 g/dL (3.4-5.0); ANION GAP 10.8 mmol/L (8-16); BILIRUBIN - TOTAL 0.5 mg/dL (0.2-1.3); CALCIUM 10.7 mg/dL (8.5-10.1); CARBON DIOXIDE 28.7 mmol/L (21.0-32.0); CREATININE - SERUM 0.8 mg/dL (0.6-1.3); POTASSIUM - SERUM 3.5 mmol/L (3.5-5.1); PROTEIN - SERUM 5.3 g/dL (6.4-8.2)
--- NOTE | 2016-12-12 10:59 | NUR ---
REPOSITIONED IN BED. DENIES NEEDS AT THIS TIME.
--- NOTE | 2016-12-12 12:28 | NUR ---
LEAD RADIATION THERAPIST IN ROOM ATTEMPTING TO FEED PATIENT BUT REFUSES TO EAT AT THIS ITME. SON AT BEDSIDE. CALL LIGHT IN REACH.
--- NOTE | 2016-12-12 14:25 | NUR ---
RESTING WITH EYES CLOSED. RESP EVEN AND UNLABORED. CALL LIGHT IN REACH.
--- NOTE | 2016-12-12 16:06 | NUR ---
CM NOTE: PATIENT IS DISCHARGING BACK TO [facility] BY FACILITY VAN TO A SKILLED NURSING CARE BED. SCHEDULED P/U IS 7PM TODAY.
[2016-12-12] MEDS ORDERED: LEVAQUIN500 MG PO (16:19)
--- NOTE | 2016-12-12 16:42 | NUR ---
MEDS ADMINISTERED PER ORDER. WILL DC IV AFTER ABX IS COMPLETED.
--- NOTE | 2016-12-12 18:04 | NUR ---
PATIENT WAS SCHEDULED FOR DISCHARGE BACK TO [facility] THIS LATE PM. HER SON SPOKE WITH DR HERNÁNDEZ AND STATED SHE COULD BE DISCHARGED BACK TO FACILITY IN THE AM. CLINICAL COORDINATOR CALLED TO [facility].
--- NOTE | 2016-12-12 18:06 | NUR ---
ASSISTED PATIENT WITH IMPACTION. LARGE BM. DR. HERNÁNDEZ SPEAKING WITH SON. REPOSITIONED IN BED PER FRUIT RECEIVER AND MYSELF. CHEL MAT ALARM IS ON. CALL LIGHT IN REACH. WILL CONTINUE WITH PLAN OF CARE.
--- NOTE | 2016-12-12 20:00 | NUR ---
ASSESSMENT PER FLOWSHEET. PATIENT ALERT TO PERSON ONLY FOLLOWS SIMPLE COMMANDS. SR UP X3 CALL LIGHT WITHIN REACH CHEL BED ALARM MAT ON DOOR OPENED YELLOW BAND ON. VOGT TO BS DRAINAGE WITH YELLOW URINE NOTED. HOB UP 30 DEGREES. SCD'S ON. IV PATENT LEFT WRIST OF LR INFUSING AT 100CC'S/HR. SITE CLEAR.
--- NOTE | 2016-12-12 22:15 | NUR ---
MEDS GIVEN CRUSHED IN APPLESAUCE. TOLERATED WELL. REPOSITIONED IN BED.
--- NOTE | 2016-12-12 23:20 | NUR ---
EYES CLOSED RESPIRATIONS WITH EASE AND UNLABORED.
--- NOTE | 2016-12-13 00:30 | NUR ---
EYES CLOSED RESPIRATIONS WITH EASE AND UNLABORED.
--- NOTE | 2016-12-13 02:00 | NUR ---
REPOSITIONED IN BED. SR UP X3 CALL LIGHT WITHIN REACH CHEL BED ALARM MAT IN PLACE.
[2016-12-13 03:15] VITALS: BP 110/40
--- NOTE | 2016-12-13 04:21 | NUR ---
IV FLUIDS COMPLETED. SALINE LOCKED IV PT TO GO BACK TO SKILLED NURSING IN AM ORDERS ALREADY WRITTEN. WILL CONTINUE PLAN OF CARE.
[2016-12-13 06:35] LABS: BASOPHILS 0.3 % (0-2); EOSINOPHILS 6.7 % (0-7); HEMATOCRIT 37.4 % (36.0-48.0); HEMOGLOBIN 12.2 g/dL (12-16); IMMATURE GRANULOCYTES 0.1 % (0-5); LYMPHOCYTES 25.2 % (15-50); MCH 29.3 pg (26.0-34.0); MCHC 32.6 g/dL (31.0-37.0); MCV 89.7 fL (80.0-100.0); MEAN PLATELET VOLUME 12.4 fL (7.4-10.4); MONOCYTES 7.4 % (2-11); NEUTROPHILS 60.3 % (40-80); PLATELET COUNT 206 10x3/uL (130-400); RBC 4.17 10x6/uL (4.00-5.40); RDW 13.2 % (11.5-14.5); WBC 7.9 10x3/uL (4.8-10.8)
[2016-12-13 07:40] LABS: ALBUMIN 2.6 g/dL (3.4-5.0); ALKALINE PHOSPHATASE 102 U/L (46-116); ALT (SGPT) 32 U/L (10-68); CALC OSMOLALITY 284 mosm/kg (275-300); CALCIUM 10.5 mg/dL (8.5-10.1); CARBON DIOXIDE 27.8 mmol/L (21.0-32.0); CHLORIDE - SERUM 105 mmol/L (98-107); CREATININE - SERUM 0.7 mg/dL (0.6-1.3); GLUCOSE 105 mg/dL (74-106); SODIUM 142 mmol/L (136-145); UREA NITROGEN 17 mg/dL (7-18); eGFR NON AFRICAN AMERICAN 84 mL/min (90-120)
[2016-12-13 07:41] LABS: POTASSIUM - SERUM 4.2 mmol/L (3.5-5.1)
--- NOTE | 2016-12-13 07:45 | NUR ---
AWAKE AND ALERT. ORIENTED TO SELF. LUNGS ARE CLEAR BILATERALLY, NO COUGH NOTED. SKIN IS INTACT WITHOUT REDNESS. ATTEMPTS TO REORIENT WITHOUT SUCCESS. SL TO LEFT WRIST IS PATENT WITHOUT REDNESS AT INSERTION SITE. ASSISTED WITH DRINKING WATER. NO OTHER NEEDS ASSESSED
[2016-12-13 09:24] VITALS: BP 125/61
--- NOTE | 2016-12-13 09:45 | NUR ---
FOUND WITH IV IN HAND CATHETER INTACT. WHEN ASKED WHY SHE TOOK IT OUT SHE SAID SHE DIDN'T KNOW WHY. WILL NOT RESTART SINCE DISCHARGE IS PENDING FOR TODAY.
--- NOTE | 2016-12-13 10:14 | NUR ---
CM REASSESSMENT NOTE: PATIENT IS BEING DISCHARGED TODAY TO [facility] BY FACILITY VAN TO A PRISON BED PER DEE. NOTIFYING SON OF DISCHARGE. AIR PRESS OPERATOR IS SCHEDULED FOR 2PM
--- NOTE | 2016-12-13 13:50 | NUR ---
REPORT CALLED TO NOE MENDEZ LPN AT [facility]. ALL QUESTIONS ANSWERED. VOGT D/C WITH TIP INTACT WITHOUT DIFFICULTY. BRIEF PLACED FOR PATIENT COMFORT.
[2016-12-13 14:02] VITALS: BP 117/72
--- NOTE | 2016-12-13 14:30 | NUR ---
DISCHARGED TO [facility] VIA THEIR TRANSPORT. SON AT BEDSIDE AT TIME OF TRANSFER. ALL QUESTIONS ANSWERED. DISCHARGE INSTRUCTIONS GIVEN TO SON BOTH VERBALLY AND WRITTEN. VERBALIZED UNDERSTANDING OF SAME. NO NEW PRESCRIPTIONS NEEDED.
== END 2016-12-13 14:30 | DRG 689 ==
LOC: D.ER 15:38 → D.MS 17:37
PROVIDERS: Emergency Medicine; Family Medicine; ADMIT Family Medicine
DX: N39.0 Urinary tract infection, site not specified (principal); G93.41 Metabolic encephalopathy; R41.82 Altered mental status, unspecified; E86.0 Dehydration; E83.52 Hypercalcemia; G30.9 Alzheimer's disease, unspecified; F02.80 Dementia in other diseases classified elsewhere, unspecified severity, without behavioral disturbance, psychotic disturbance, mood disturbance, and anxiety; F32.9 Major depressive disorder, single episode, unspecified; I10 Essential (primary) hypertension; E03.9 Hypothyroidism, unspecified; M19.90 Unspecified osteoarthritis, unspecified site